=== PATIENT | male | born 1980 | race Caucasian/White ===

== ENCOUNTER 2020-04-14 23:04 | Inpatient (IN) ==
[2020-04-15] MEDS ORDERED: ONDANSETRON INJ 2 MG/ML 2 ML VIAL IV STA (00:03)
[2020-04-15] MEDS ORDERED: DEXAMETHASONE SOD INJ 10 MG/ML VIAL IV ONE (00:03)
[2020-04-15] MEDS ORDERED: ACETAMINOPHEN 500 MG TAB PO STA (00:03)
[2020-04-15] MEDS ORDERED: SODIUM CHLORIDE 0.9% 1000ML 1,000 ML IV SCH (00:15)
[2020-04-15 01:15] LABS: Basophils # (auto) 0.01 K/uL (0-0.2); Basophils % (auto) 0.2 %; Eosinophils # (auto) 0.01 K/uL (0-0.5); Eosinophils % (auto) 0.2 %; Hematocrit (blood only) 48.7 % (42-52); Hemoglobin 16.8 g/dL (14.0-18.0); Immature Granulocytes # (auto) 0.01 K/uL (0.00-0.02); Immature Granulocytes % (auto) 0.2 %; Lymphocytes # (auto) 0.82 K/uL (1.2-3.4); Lymphocytes % (auto) 18.9 %; Mean Corpuscular Hemoglobin 32.2 pg (25-34); Mean Corpuscular Hgb Conc 34.5 g/dL (32-36); Mean Corpuscular Volume 93.5 fL (80-100); Mean Platelet Volume 10.5 fL (7.4-10.4); Monocytes # (auto) 0.37 K/uL (0.11-0.59); Monocytes % (auto) 8.5 %; Neutrophils # (auto) 3.11 K/uL (1.4-6.5); Platelet Count 190 K/uL (130-400); RDW Coefficient of Variation 13.4 % (11.5-14.5); Red Blood Count 5.21 M/uL (4.7-6.1); White Blood Count 4.33 K/uL (4.8-10.8)
[2020-04-15 01:32] LABS: Albumin Level 3.5 gm/dl (3.4-5.0); Blood Urea Nitrogen 13 mg/dl (7-18); Calcium 8.7 mg/dl (8.5-10.1); Carbon Dioxide 27 mmol/L (21-32); Chloride 100 mmol/L (98-107); Creatinine Clr Calc Pharmacy 95.2 ml/min; Est GFR (Non-African American) 64.8; Glucose 110 mg/dl (70-99); Potassium 4.1 mmol/L (3.5-5.1); Sodium 133 mmol/L (136-145)
[2020-04-15 01:48] LABS: Alanine Aminotransferase 149 U/L (12-78); Albumin Globulin Ratio 0.7 (0.9-2); Alkaline Phosphatase 97 U/L (45-117); Aspartate Aminotransferase 145 U/L (15-37); Bilirubin,Total 0.7 mg/dl (0.2-1); Globulin 4.7 gm/dl (2.5-4.0); Total Protein 8.2 gm/dl (6.4-8.2); Troponin I < 0.015 ng/ml (0-0.045)
[2020-04-15] MEDS ORDERED: LEVALBUTEROL TARTRATE 15 GM HFA.AER.AD INH PRN (01:59)
[2020-04-15 02:41] LABS: Magnesium 2.2 mg/dl (1.8-2.4)
--- NOTE | 2020-04-15 03:05 | Emergency Department Note ---
History of Present Illness General Chief complaint: Shortness of Breath/Dyspnea Stated complaint: SOB, Time Seen by Provider: 04/14/20 23:50 Source: patient and RN notes reviewed Mode of arrival: ambulatory Limitations: no limitations History of Present Illness Provider complaint: Covid exposure, shortness of breath, cough, low pulse ox Maximum Pain Intensity: 0 This patient is a 39-year-old male who presents emergency department with complaints of shortness of breath, cough. His recently tested positive for Covid. He had outpatient swab done earlier today but over the course of the evening developed fevers, cough, shortness of breath and used his 's pulse oximeter and realize his oxygen saturations were in the mid 80s. Patient states he has had symptoms for 3 to 4 days. He has lost sense of taste and smell. He has had difficulty eating and drinking but denies any vomiting or diarrhea. He has been using occasional Tylenol for pain and fever but has not had any in over 12 hours. He denies any significant chest pain or abdominal pain at this time. 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 and A total of 10 systems reviewed and were otherwise negative Physical Exam Vital Signs Vital Signs - 24 hr 04/14/20 23:07 04/14/20 23:41 04/14/20 23:43 Temperature 37.8 C H Temperature Source Temporal Artery Scan Pulse Rate 130 H 110 H Pulse Rate [Apical] Pulse Rate from SpO2 Sensor 110 H Respiratory Rate 20 20 Respiratory Effort / Characteristics Respiratory Depth Normal Blood Pressure 111/68 Blood Pressure [Right Arm] Blood Pressure Mean 82 Blood Pressure Mean [Right Arm] Pulse Oximetry 90 87 L 95 Oxygen Delivery Method Room Air Nasal Cannula Room Air Oxygen Flow Rate 2 Sepsis Recent Fever Within 48 Hours No Sepsis New/Unexplained Change in Mental Status N/A Sepsis Action Taken by Nursing No Action Required Oxygen Flow Rate - Titration 2 Pulse Oximetry Post Tiitration 91 04/15/20 00:00 04/15/20 00:30 04/15/20 01:18 Temperature Temperature Source Pulse Rate 109 H 115 H 109 H Pulse Rate [Apical] Pulse Rate from SpO2 Sensor 109 H 115 H 110 H Respiratory Rate 24 15 15 Respiratory Effort / Characteristics Respiratory Depth Blood Pressure 113/69 Blood Pressure [Right Arm] Blood Pressure Mean 87 Blood Pressure Mean [Right Arm] Pulse Oximetry 96 95 96 Oxygen Delivery Method Nasal Cannula Nasal Cannula Nasal Cannula Oxygen Flow Rate 2 2 2 Sepsis Recent Fever Within 48 Hours Sepsis New/Unexplained Change in Mental Status Sepsis Action Taken by Nursing Oxygen Flow Rate - Titration Pulse Oximetry Post Tiitration 04/15/20 01:30 04/15/20 01:31 04/15/20 02:00 Temperature Temperature Source Pulse Rate 106 H 105 H 110 H Pulse Rate [Apical] Pulse Rate from SpO2 Sensor 106 H 105 H 110 H Respiratory Rate 24 24 22 Respiratory Effort / Characteristics Respiratory Depth Blood Pressure 121/75 102/66 Blood Pressure [Right Arm] Blood Pressure Mean 81 80 Blood Pressure Mean [Right Arm] Pulse Oximetry 97 97 95 Oxygen Delivery Method Nasal Cannula Nasal Cannula Nasal Cannula Oxygen Flow Rate 2 2 2 Sepsis Recent Fever Within 48 Hours Sepsis New/Unexplained Change in Mental Status Sepsis Action Taken by Nursing Oxygen Flow Rate - Titration Pulse Oximetry Post Tiitration 04/15/20 02:01 04/15/20 02:48 Temperature 37.4 C Temperature Source Oral Pulse Rate 111 H Pulse Rate [Apical] 99 H Pulse Rate from SpO2 Sensor 111 H Respiratory Rate 17 23 Respiratory Effort / Characteristics Non-Labored Spontaneous Respiratory Depth Normal Blood Pressure Blood Pressure [Right Arm] 104/64 Blood Pressure Mean Blood Pressure Mean [Right Arm] 77 Pulse Oximetry 94 92 Oxygen Delivery Method Nasal Cannula Nasal Cannula Oxygen Flow Rate 2 2 Sepsis Recent Fever Within 48 Hours Sepsis New/Unexplained Change in Mental Status Sepsis Action Taken by Nursing Oxygen Flow Rate - Titration Pulse Oximetry Post Tiitration Vital signs reviewed. General: Well-appearing 39 yo male, in no significant distress. HEENT: No scleral icterus, PERRLA, neck supple. Atraumatic. Cardiovascular: Regular rate and rhythm, no extra sounds. Pulmonary: Coarse breath sounds bilaterally, normal work of breathing. On nasal cannula oxygen Abdomen: Soft, obese, nontender, nondistended, positive bowel sounds. Musculoskeletal: Atraumatic, no peripheral edema. Neurologic: Patient awake alert and oriented x 3. Skin: Warm, dry, no rash Course Administered Medications Benzonatate (Benzonatate 100 Mg Capsule) 100 mg PO BID PRN PRN Reason: Cough Stop: 05/15/20 16:03 Last Admin: 04/16/20 00:53 Dose: 100 mg Documented by: [id number] Enoxaparin Sodium (Enoxaparin Inj 40 Mg/0.4 Ml Syr) 40 mg SQ QAM [facility] Stop: 05/15/20 08:59 Last Admin: 04/18/20 08:48 Dose: 40 mg Documented by: [id number] Admin: 04/17/20 08:24 Dose: 40 mg Documented by: [id number] Admin: 04/16/20 08:43 Dose: 40 mg Documented by: [id number] Admin: 04/15/20 08:11 Dose: 40 mg Documented by: [id number] Guaifenesin (Guaifenesin 600 Mg Tabcr) 1,200 mg PO Q12 [facility] Stop: 05/15/20 06:52 Last Admin: 04/18/20 08:49 Dose: 1,200 mg Documented by: [id number] Admin: 04/17/20 21:31 Dose: 1,200 mg Documented by: [id number] Admin: 04/17/20 08:24 Dose: 1,200 mg Documented by: [id number] Admin: 04/16/20 21:22 Dose: 1,200 mg Documented by: [id number] Admin: 04/16/20 08:42 Dose: 1,200 mg Documented by: [id number] Admin: 04/15/20 22:03 Dose: Not Given Documented by: [id number] Admin: 04/15/20 08:11 Dose: 1,200 mg Documented by: [id number] Guaifenesin/Codeine Phosphate (Guaifenesin/Codeine 200mg/20mg 10ml Udc) 10 ml PO Q6H PRN PRN Reason: Cough Stop: 05/15/20 15:54 Last Admin: 04/16/20 00:53 Dose: 10 ml Documented by: [id number] Dexamethasone Sodium Phosphate (6 mg/ Syringe) 1.5 mls @ 1 mls/min IV QAM [facility] Stop: 04/25/20 09:02 Last Admin: 04/18/20 08:48 Dose: 1 mls/min Documented by: [id number] Admin: 04/17/20 08:25 Dose: 1 mls/min Documented by: [id number] Admin: 04/16/20 08:42 Dose: 1 mls/min Documented by: [id number] Remdesivir 100 mg/ Sodium (Chloride) 250 mls @ 250 mls/hr IV Q24H [facility]ELANIA; Protocol Stop: 04/19/20 20:59 Last Infusion: 04/17/20 21:29 Dose: 0 mls/hr Documented by: [id number] Admin: 04/17/20 20:19 Dose: 250 mls/hr Documented by: [id number] Infusion: 04/16/20 23:44 Dose: 0 mls/hr Documented by: [id number] Admin: 04/16/20 21:21 Dose: 250 mls/hr Documented by: [id number] Ipratropium [place] (Ipratropium [place] Neb Soln 0.02% 2.5 Ml Vial) 0.5 mg INH Q4H PRN PRN Reason: Shortness Of Breath Or Wheezing Stop: 05/17/20 00:14 Last Admin: 04/17/20 00:36 Dose: 0.5 mg Documented by: [id number] Levalbuterol HCl (Levalbuterol 1.25mg/0.5ml Neb) 1.25 mg INH Q4H PRN PRN Reason: Shortness Of Breath Or Wheezing Stop: 05/17/20 00:14 Last Admin: 04/17/20 00:36 Dose: 1.25 mg Documented by: [id number] Sodium Chloride (Sodium Chloride 0.9% 10ml Flush) 30 ml IV Q24H [facility]EL[facility]IA Stop: 04/19/20 20:01 Last Admin: 04/17/20 21:29 Dose: 30 ml Documented by: [id number] Admin: 04/16/20 23:43 Dose: 30 ml Documented by: [id number] Admin: 04/15/20 20:30 Dose: 30 ml Documented by: [id number] Discontinued Medications Acetaminophen (Acetaminophen 500 Mg Tab) 1,000 mg PO ONE STA Stop: 04/15/20 00:04 Last Admin: 04/15/20 01:09 Dose: 1,000 mg Documented by: [id number] Dexamethasone (Dexamethasone Sod Inj 10 Mg/Ml Vial) 6 mg IV NOW ONE Stop: 04/15/20 00:04 Last Admin: 04/15/20 01:11 Dose: 6 mg Documented by: [id number] Guaifenesin/Codeine Phosphate (Guaifenesin/Codeine 200mg/20mg 10ml Udc) 10 ml PO ONE ONE Stop: 04/15/20 15:57 Last Admin: 04/15/20 16:42 Dose: 10 ml Documented by: [id number] Sodium Chloride (Nss 1000ml) 1,000 mls @ 999 mls/hr IV .Q1H1M [facility]EL[facility]IA Stop: 04/15/20 01:15 Last Infusion: 04/15/20 02:48 Dose: 0 mls/hr Documented by: [id number] Admin: 04/15/20 01:09 Dose: 999 mls/hr Documented by: [id number] Sodium Chloride (Nss 1000ml) 1,000 mls @ 200 mls/hr IV .Q5H ONE Stop: 04/15/20 09:12 Last Infusion: 04/15/20 08:28 Dose: 0 mls/hr Documented by: [id number] Admin: 04/15/20 05:12 Dose: 200 mls/hr Documented by: [id number] Remdesivir 200 mg/ Sodium (Chloride) 250 mls @ 125 mls/hr IV 1630 ONE; Protocol Stop: 04/15/20 18:29 Last Infusion: 04/15/20 19:14 Dose: 0 mls/hr Documented by: [id number] Admin: 04/15/20 16:50 Dose: 125 mls/hr Documented by: [id number] Furosemide 40 mg/ Syringe 4 mls @ 4 mls/min IV ONE ONE Stop: 04/18/20 11:16 Last Admin: 04/18/20 11:25 Dose: 4 mls/min Documented by: [id number] Levalbuterol HCl (Levalbuterol Tartrate 15 Gm Hfa.Aer.Ad) 2 puffs INH Q6 MELANIA Stop: 05/15/20 06:52 Last Admin: 04/15/20 14:23 Dose: 2 puffs Documented by: [id number] Admin: 04/15/20 07:54 Dose: 2 puffs Documented by: [id number] Ondansetron HCl (Ondansetron Inj 2 Mg/Ml 2 Ml Vial) 4 mg IV NOW STA Stop: 04/15/20 00:04 Last Admin: 04/15/20 01:09 Dose: 4 mg Documented by: [id number] Critical Care Time Critical Care Time: Yes Total Critical Care Time: 35 The high probability of a clinically significant, sudden or life threatening deterioration required my full and direct attention, intervention and personal management. The aggregate critical care time was 35 minutes. This time is in addition to time spent performing reported procedures but includes the following: [x] Data Review and interpretation [x] Patient assessment and monitoring of vital signs [x] Documentation [x] Medication orders and management Medical Decision Making Differential Diagnosis Reactive airway disease, Covid, pneumonia, pneumothorax, COPD, CHF, infections, cardiac ischemia, pulmonary embolism, musculoskeletal, gastrointestinal, as well as other pathologies. Medical Records Attestation: I reviewed the patient's medical records. Home Medications Current Medication List: was personally reviewed by me Laboratory Data Attestation: I reviewed the patient's lab results. Result diagrams: 04/17/20 06:10 04/18/20 07:20 Lab Results 04/15/20 04/15/20 04/15/20 Range/Units 00:03 01:04 01:04 WBC 4.33 L (4.8-10.8) K/uL RBC 5.21 (4.7-6.1) M/uL Hgb 16.8 (14.0-18.0) g/dL Hct 48.7 (42-52) % MCV 93.5 (80-100) fL MCH 32.2 (25-34) pg MCHC 34.5 (32-36) g/dL RDW Std Deviation 46.0 (36.4-46.3) fL RDW Coeff of Mac 13.4 (11.5-14.5) % Plt Count 190 (130-400) K/uL MPV 10.5 H (7.4-10.4) fL Immature Gran % (Auto) 0.2 % Neut % (Auto) 72.0 % Lymph % (Auto) 18.9 % Burt % (Auto) 8.5 % Eos % (Auto) 0.2 % Baso % (Auto) 0.2 % Neut # (Auto) 3.11 (1.4-6.5) K/uL Lymph # (Auto) 0.82 L (1.2-3.4) K/uL Burt # (Auto) 0.37 (0.11-0.59) K/uL Eos # (Auto) 0.01 (0-0.5) K/uL Baso # (Auto) 0.01 (0-0.2) K/uL Immature Gran # (Auto) 0.01 (0.00-0.02) K/uL Sodium 133 L (136-145) mmol/L Potassium 4.1 (3.5-5.1) mmol/L Chloride 100 (98-107) mmol/L Carbon Dioxide 27 (21-32) mmol/L Anion Gap 6.0 (3-11) BUN 13 (7-18) mg/dl Creatinine 1.35 (0.6-1.4) mg/dl Est Cr Clr Drug Dosing 95.2 ml/min Est GFR ( Amer) 75.0 Est GFR (Non-Af Amer) 64.8 BUN/Creatinine Ratio 10.0 (10-20) Glucose 110 H (70-99) mg/dl Estimat Average Glucose mg/dl Hemoglobin A1c (4.5-5.6) % Lactate (0.4-2.0) mmol/L Calcium 8.7 (8.5-10.1) mg/dl Magnesium 2.2 (1.8-2.4) mg/dl Total Bilirubin 0.7 (0.2-1) mg/dl AST 145 H (15-37) U/L ALT 149 H (12-78) U/L Alkaline Phosphatase 97 (45-117) U/L Troponin I < 0.015 (0-0.045) ng/ml Total Protein 8.2 (6.4-8.2) gm/dl Albumin 3.5 (3.4-5.0) gm/dl Globulin 4.7 H (2.5-4.0) gm/dl Albumin/Globulin Ratio 0.7 L (0.9-2) Procalcitonin 0.15 (0-0.5) ng/ml TSH 1.650 (0.300-4.500) uIu/ml COVID-19 Eval Order SARS-CoV-2, RNA, NAAT (NEGATIVE) 04/15/20 04/15/20 04/15/20 Range/Units 01:04 01:04 01:16 WBC (4.8-10.8) K/uL RBC (4.7-6.1) M/uL Hgb (14.0-18.0) g/dL Hct (42-52) % MCV (80-100) fL MCH (25-34) pg MCHC (32-36) g/dL RDW Std Deviation (36.4-46.3) fL RDW Coeff of Mac (11.5-14.5) % Plt Count (130-400) K/uL MPV (7.4-10.4) fL Immature Gran % (Auto) % Neut % (Auto) % Lymph % (Auto) % Burt % (Auto) % Eos % (Auto) % Baso % (Auto) % Neut # (Auto) (1.4-6.5) K/uL Lymph # (Auto) (1.2-3.4) K/uL Burt # (Auto) (0.11-0.59) K/uL Eos # (Auto) (0-0.5) K/uL Baso # (Auto) (0-0.2) K/uL Immature Gran # (Auto) (0.00-0.02) K/uL Sodium (136-145) mmol/L Potassium (3.5-5.1) mmol/L Chloride (98-107) mmol/L Carbon Dioxide (21-32) mmol/L Anion Gap (3-11) BUN (7-18) mg/dl Creatinine (0.6-1.4) mg/dl Est Cr Clr Drug Dosing ml/min Est GFR ( Amer) Est GFR (Non-Af Amer) BUN/Creatinine Ratio (10-20) Glucose (70-99) mg/dl Estimat Average Glucose 128 mg/dl Hemoglobin A1c 6.1 H (4.5-5.6) % Lactate 0.8 (0.4-2.0) mmol/L Calcium (8.5-10.1) mg/dl Magnesium (1.8-2.4) mg/dl Total Bilirubin (0.2-1) mg/dl AST (15-37) U/L ALT (12-78) U/L Alkaline Phosphatase (45-117) U/L Troponin I (0-0.045) ng/ml Total Protein (6.4-8.2) gm/dl Albumin (3.4-5.0) gm/dl Globulin (2.5-4.0) gm/dl Albumin/Globulin Ratio (0.9-2) Procalcitonin (0-0.5) ng/ml TSH (0.300-4.500) uIu/ml COVID-19 [facility] SARS-[facility]-2, RNA, NAAT (NEGATIVE) 04/15/20 Range/Units 01:16 WBC (4.8-10.8) K/uL RBC (4.7-6.1) M/uL Hgb (14.0-18.0) g/dL Hct (42-52) % MCV (80-100) fL MCH (25-34) pg MCHC (32-36) g/dL RDW Std Deviation (36.4-46.3) fL RDW Coeff of Mac (11.5-14.5) % Plt Count (130-400) K/uL MPV (7.4-10.4) fL Immature Gran % (Auto) % Neut % (Auto) % Lymph % (Auto) % Burt % (Auto) % Eos % (Auto) % Baso % (Auto) % Neut # (Auto) (1.4-6.5) K/uL Lymph # (Auto) (1.2-3.4) K/uL Burt # (Auto) (0.11-0.59) K/uL Eos # (Auto) (0-0.5) K/uL Baso # (Auto) (0-0.2) K/uL Immature Gran # (Auto) (0.00-0.02) K/uL Sodium (136-145) mmol/L Potassium (3.5-5.1) mmol/L Chloride (98-107) mmol/L Carbon Dioxide (21-32) mmol/L Anion Gap (3-11) BUN (7-18) mg/dl Creatinine (0.6-1.4) mg/dl Est Cr Clr Drug Dosing ml/min Est GFR ( Amer) Est GFR (Non-Af Amer) BUN/Creatinine Ratio (10-20) Glucose (70-99) mg/dl Estimat Average Glucose mg/dl Hemoglobin A1c (4.5-5.6) % Lactate (0.4-2.0) mmol/L Calcium (8.5-10.1) mg/dl Magnesium (1.8-2.4) mg/dl Total Bilirubin (0.2-1) mg/dl AST (15-37) U/L ALT (12-78) U/L Alkaline Phosphatase (45-117) U/L Troponin I (0-0.045) ng/ml Total Protein (6.4-8.2) gm/dl Albumin (3.4-5.0) gm/dl Globulin (2.5-4.0) gm/dl Albumin/Globulin Ratio (0.9-2) Procalcitonin (0-0.5) ng/ml TSH (0.300-4.500) uIu/ml COVID-19 Eval Order SARS-CoV-2, RNA, NAAT POSITIVE A* (NEGATIVE) Imaging Data Attestation: I personally reviewed and interpreted this imaging study as follows: My Impression: Chest x-ray to my interpretation reveals evidence of a viral pneumonitis, no pneumothorax Radiologist's Impression: XR chest 1V portable HISTORY: Shortness of breath. Positive Covid. COMPARISON: None. FINDINGS: No pneumothorax. No pleural effusions. The heart is mildly enlarged. There is patchy hazy bilateral airspace opacities within the mid to lower lung zones most pronounced on the left. This is consistent with a multifocal pneumonia. IMPRESSION: Patchy bilateral airspace opacities within the mid to lower lung zones consistent with a multifocal pneumonia. ACT 112: Negative or not required by law. Electronically signed by: Klaus Fabian M.D. 04/15/2020 7:51 AM Dictated: 04/15/20749Transcribed: 04/15/20749 ECG Data Attestation: I personally reviewed and interpreted this ECG as follows: Indication: + tachycardia Rate (beats per minute): 114 Rhythm: + sinus tachycardia ECG [place]: + Left axis deviation ECG ST segments: + Normal ST segments and + Nonspecific ST abnormalities ECG Findings: + Q waves; no PACs and no PVCs Blood Pressure Blood Pressure Findings: Normal blood pressure Blood Pressure Disposition: did not require urgent referral MDM Narrative This pt was evaluated and appeared to be in no distress. He was noted to be hypoxic on RA at triage and placed on n/c O2. An order for cardiac monitoring was placed and the pt is noted to be in a ST at 120 bpm. CXR reveals bilateral patchy infiltrates. Pt was given po tylenol, IV decadron, and IX zofran. He was hydrated with NSS. Lab work reveals a mild leukopenia, neg troponin and normal lactate. Pt is mildly hypokalemic, maybe secondary to hyperventilation. Pt's case was d/w the hospitalist service for admission and further management. Pt is aware of the plan and agrees. Impression & Plan Pneumonia due to 2019 novel coronavirus, Hypoxia Discharge Plan Visit Data Chief Complaint: Shortness of Breath/Dyspnea Stated Complaint: SOB, ED Provider: Laurie Shelton Discharge Problem: Pneumonia due to 2019 novel coronavirus, Hypoxia Patient Disposition: Admitted As Inpatient Discharge Instructions Interventions: ED Discharge Assessment Last Done: 04/15/20 06:21
[2020-04-15] MEDS ORDERED: SODIUM CHLORIDE 0.9% 1000ML 1,000 ML IV ONE (04:13)
--- NOTE | 2020-04-15 05:07 | History & Physical Report ---
Date of Service April 15, 2020 Assessment & Plan (1) Acute hypoxemic respiratory failure: Secondary to severe COVID-19 pneumonia Transaminitis, possible fatty liver disease Hyperglycemia rule out DM Medical telemetry Supplemental O2 Baseline ABG Decadron course for severe COVID-19 pneumonia MDI RTC Hold Remdesivir for now given abnormal LFTs. Check hemoglobin A1c DVT prophylaxis per Lovenox subcu Full code Text document was generated using [employer] voice recognition software. It may contain grammatical or spelling errors. Kindly contact undersigned for clarification of any documentation item in question. History of Present Illness Chief Complaint: Cough, shortness of breath Primary Care Provider: NO PCP History obtained from patient and records. No significant medical history. Yesterday, patient developed dry cough and shortness of breath symptoms with fever, chills. No chest pain. Appetite not too good. 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 At the ER, O2 sats 80s at some point. Decadron given at the ER. 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 Allergies Allergy/AdvReac Type Severity Reaction Status Date / Time No Known Allergies Allergy Unverified 04/15/20 00:01 Home Medications Medication Instructions Recorded Confirmed Type No Known Home Medications 04/15/20 04/15/20 History Past Med/Surg History Medical History (Updated 04/15/20 @ 13:41 by José Miguel Tong MD) Kidney stones Social History Smoking Status: Never smoker Second Hand Exposure: No; Do You Dip or Chew Tobacco: No; Tobacco Cessation Education Requested by Patient: No Hx Alcohol Use: Yes Hx Substance Use: No Preferred Language: Frisian Communication Ability: Effective 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 Beliefs That Will Affect Care: None marital status: Current Living Situation: Spouse Other Information That Helps Us Care for You: No Feels Safe at Home: Yes Safety Concerns: Feels Safe At This Time Assistive Devices: None Review of Systems Review of Systems: As per HPI, all 10 systems reviewed, all other ROS negative Physical Exam Physical Exam: GENERAL: Comfortable, obese, pleasant, no respiratory distress SKIN: Normal color, warm HEENT: Boring palpebral conjunctivae, no ptosis, dry buccal mucosa, nasal cannula in place NECK : Supple, short neck, no tenderness CHEST : CTA, no tenderness HEART : RRR, no obvious murmurs ABDOMEN: Some distention, nontender EXTREMITIES : No LE swelling/tenderness, no other conspicuous deformities noted NEUROLOGIC : Coherent, no facial asymmetry, no other gross focality Results & Data Results & Data ([facility]) Vital Signs (Past 12 Hours) Vital Signs Temp Pulse Pulse Resp BP BP Pulse Ox 04/15/20 04:01 88 22 92 04/15/20 04:00 88 20 103/61 92 04/15/20 03:31 91 H 19 93 04/15/20 03:30 90 24 94/62 L 92 04/15/20 03:01 96 H 24 94 04/15/20 03:00 94 H 24 107/62 94 04/15/20 02:48 37.4 C 99 H 99 H 22 104/64 104/64 92 04/15/20 02:01 111 H 17 94 04/15/20 02:00 110 H 22 102/66 95 04/15/20 01:31 105 H 24 97 04/15/20 01:30 106 H 24 121/75 97 04/15/20 01:18 109 H 15 113/69 96 04/15/20 00:30 115 H 15 95 04/15/20 00:00 109 H 24 96 04/14/20 23:43 110 H 20 95 04/14/20 23:41 87 L 04/14/20 23:07 37.8 C H 130 H 20 111/68 90 Laboratory Results Laboratory Results WBC 4.33 K/uL (4.8-10.8) L 04/15/20 01:04 RBC 5.21 M/uL (4.7-6.1) 04/15/20 01:04 Hgb 16.8 g/dL (14.0-18.0) 04/15/20 01:04 Hct 48.7 % (42-52) 04/15/20 01:04 MCV 93.5 fL (80-100) 04/15/20 01:04 MCH 32.2 pg (25-34) 04/15/20 01:04 MCHC 34.5 g/dL (32-36) 04/15/20 01:04 RDW Std Deviation 46.0 fL (36.4-46.3) 04/15/20 01:04 RDW Coeff of Mac 13.4 % (11.5-14.5) 04/15/20 01:04 Plt Count 190 K/uL (130-400) 04/15/20 01:04 MPV 10.5 fL (7.4-10.4) H 04/15/20 01:04 Immature Gran % (Auto) 0.2 % 04/15/20 01:04 Neut % (Auto) 72.0 % 04/15/20 01:04 Lymph % (Auto) 18.9 % 04/15/20 01:04 [place] % (Auto) 8.5 % 04/15/20 01:04 Eos % (Auto) 0.2 % 04/15/20 01:04 Baso % (Auto) 0.2 % 04/15/20 01:04 Neut # (Auto) 3.11 K/uL (1.4-6.5) 04/15/20 01:04 Lymph # (Auto) 0.82 K/uL (1.2-3.4) L 04/15/20 01:04 [place] # (Auto) 0.37 K/uL (0.11-0.59) 04/15/20 01:04 Eos # (Auto) 0.01 K/uL (0-0.5) 04/15/20 01:04 Baso # (Auto) 0.01 K/uL (0-0.2) 04/15/20 01:04 Immature Gran # (Auto) 0.01 K/uL (0.00-0.02) 04/15/20 01:04 Sodium 133 mmol/L (136-145) L 04/15/20 01:04 Potassium 4.1 mmol/L (3.5-5.1) 04/15/20 01:04 Chloride 100 mmol/L (98-107) 04/15/20 01:04 Carbon Dioxide 27 mmol/L (21-32) 04/15/20 01:04 Anion Gap 6.0 (3-11) 04/15/20 01:04 BUN 13 mg/dl (7-18) 04/15/20 01:04 Creatinine 1.35 mg/dl (0.6-1.4) 04/15/20 01:04 Est Cr Clr Drug Dosing 95.2 ml/min 04/15/20 01:04 Est GFR ( Amer) 75.0 04/15/20 01:04 Est GFR (Non-Af Amer) 64.8 04/15/20 01:04 BUN/Creatinine Ratio 10.0 (10-20) 04/15/20 01:04 Glucose 110 mg/dl (70-99) H 04/15/20 01:04 Lactate 0.8 mmol/L (0.4-2.0) 04/15/20 01:04 Calcium 8.7 mg/dl (8.5-10.1) 04/15/20 01:04 Magnesium 2.2 mg/dl (1.8-2.4) 04/15/20 01:04 Total Bilirubin 0.7 mg/dl (0.2-1) 04/15/20 01:04 AST 145 U/L (15-37) H 04/15/20 01:04 ALT 149 U/L (12-78) H 04/15/20 01:04 Alkaline Phosphatase 97 U/L (45-117) 04/15/20 01:04 Troponin I < 0.015 ng/ml (0-0.045) 04/15/20 01:04 Total Protein 8.2 gm/dl (6.4-8.2) 04/15/20 01:04 Albumin 3.5 gm/dl (3.4-5.0) 04/15/20 01:04 Globulin 4.7 gm/dl (2.5-4.0) H 04/15/20 01:04 Albumin/Globulin Ratio 0.7 (0.9-2) L 04/15/20 01:04 TSH 1.650 uIu/ml (0.300-4.500) 04/15/20 01:04 COVID-19 Eval Order Covid19 [facility] 04/15/20 01:16 SARS-CoV-2, RNA, NAAT POSITIVE (NEGATIVE) A* 04/15/20 01:16 Diagnostic Findings Chest x-ray : Patchy bilateral airspace opacities within the mid to lower lung zones consistent with a multifocal pneumonia. EKG as per my interpretation : 115, sinus tachycardia, LAD, LAFB, T wave abnormalities inferior leads
[2020-04-15 06:06] LABS: Estimated Average Glucose 128 mg/dl; Hemoglobin A1C 6.1 % (4.5-5.6)
[2020-04-15] MEDS ORDERED: PROMETHAZINE HCL 12.5 MG in SODIUM CHLORIDE 0.9% 50 ML IV PRN (06:53)
[2020-04-15] MEDS ORDERED: ACETAMINOPHEN 325 MG TAB PO PRN (06:53)
[2020-04-15 06:58] LABS: Allen Test Pos (Pos); Base Excess ABG -1.9 mEq/L (-9-1.8); HCO3 ABG 23 mmol/L (19-24); PCO2 ABG 41 mmHg (35-46); PO2 ABG 74 mmHg (80-95); pH ABG 7.37 (7.35-7.45)
[2020-04-15 06:59] LABS: Hematocrit (blood only) 44.9 % (42-52); Hemoglobin 15.3 g/dL (14.0-18.0); Immature Granulocytes # (auto) 0.02 K/uL (0.00-0.02); Immature Granulocytes % (auto) 0.7 %; Lymphocytes # (auto) 0.65 K/uL (1.2-3.4); Mean Corpuscular Hemoglobin 31.8 pg (25-34); Mean Corpuscular Hgb Conc 34.1 g/dL (32-36); Mean Corpuscular Volume 93.3 fL (80-100); Mean Platelet Volume 10.4 fL (7.4-10.4); Monocytes # (auto) 0.14 K/uL (0.11-0.59); Monocytes % (auto) 4.7 %; Neutrophils # (auto) 2.15 K/uL (1.4-6.5); Neutrophils % (auto) 72.6 %; Platelet Count 178 K/uL (130-400); RDW Coefficient of Variation 13.4 % (11.5-14.5); RDW Standard Deviation 45.9 fL (36.4-46.3); Red Blood Count 4.81 M/uL (4.7-6.1); White Blood Count 2.96 K/uL (4.8-10.8)
[2020-04-15 07:28] LABS: Prothrombin Time 10.9 Seconds (9.0-12.0)
[2020-04-15 07:33] LABS: BUN Creatinine Ratio 11.5 (10-20); Bilirubin Direct 0.2 mg/dl (0-0.2); Calcium 7.9 mg/dl (8.5-10.1); Creatinine Clr Calc Pharmacy 120.1 ml/min; Est GFR (African American) 99.4; Est GFR (Non-African American) 85.8; Potassium 4.2 mmol/L (3.5-5.1)
[2020-04-15 07:38] LABS: Bilirubin,Total 0.5 mg/dl (0.2-1); C Reactive Protein 2.92 mg/dl (0-0.29); Ferritin 1943.3 ng/ml (8-388); Total Protein 7.2 gm/dl (6.4-8.2)
--- NOTE | 2020-04-15 07:52 | XRay Report ---
XR chest 1V portable HISTORY: Shortness of breath. Positive Covid. COMPARISON: None. FINDINGS: No pneumothorax. No pleural effusions. The heart is mildly enlarged. There is patchy hazy b ilateral airspace opacities within the mid to lower lung zones most pronounced on the left. This is c onsistent with a multifocal pneumonia. IMPRESSION: Patchy bilateral airspace opacities within the mid to lower lung zones consistent with a multifocal p neumonia. ACT 112: Negative or not required by law. Electronically signed by: Klaus Fabian M.D. 04/15/2020 7:51 AM
[2020-04-15] MEDS: LEVALBUTEROL TARTRATE 15 GM HFA.AER.AD INH SCH ×2 (07:54→14:23)
[2020-04-15] MEDS: ENOXAPARIN INJ 40 MG/0.4 ML SYR SQ SCH (08:11)
[2020-04-15] MEDS: guaiFENesin 600 MG TABCR PO SCH ×2 (08:11→22:03)
[2020-04-15] MEDS ORDERED: dexAMETHasone 6 MG in DEXTROSE 5% 25 ML IV SCH (09:00)
--- NOTE | 2020-04-15 12:31 | Electrocardiogram Report ---
Test Reason : Blood Pressure : / mmHG Vent. Rate : 114 BPM Atrial Rate : 114 BPM P-R Int : 120 ms QRS Dur : 080 ms QT Int : 320 ms P-R-T Axes : 022 -44 020 degrees QTc Int : 441 ms Sinus tachycardia Left axis deviation Poor R wave progression, consider anterior NM vs. lead placement vs. LVH Abnormal ECG No previous ECGs available Confirmed by Gumaro Connolly ([id number]) on 04/15/2020 12:31:20 PM Referred By: REFERRED SELF Confirmed By:Gumaro Connolly
--- NOTE | 2020-04-15 14:21 | Hospitalist Progress Note ---
Date of Service April 15, 2020 Assessment & Plan (1) Pneumonia due to 2019 novel coronavirus: The patient was started on dexamethasone, with remdesivir held secondary to aminotransferases that were elevated. These are not elevated beyond 10 times the upper limit of normal, however, and the patient qualifies for remdesivir treatment. This was initiated. Continue to trend CRP and procalcitonin and follow clinical course closely. No indication for antibiotics at this point. (2) Hypoxia: Continue plan as above, continue oxygen supplementation for support. (3) Elevated LFTs: Likely related to fatty liver disease versus medications. The patient also recently had a couple alcoholic drinks, which may be playing a role. Either way, the LFT elevation is not prohibitive of remdesivir use in the short- term. This was started in the setting of COVID-19 pneumonia with hypoxia. Continue to trend LFTs while the patient is on remdesivir and if they persist, further outpatient work-up for elevated LFTs is warranted. (4) DVT prophylaxis: Lovenox Full code Disposition-to telemetry. Home when off oxygen and clinically improved, likely in the next few days Mojgan Mckeon DO [facility] hospitalist Admission and Anticipated Discharge Date Admission Date: April 15, 2020 Subjective 39-year-old man presenting with worsening shortness of breath, admitted for hypoxia secondary to severe COVID-19 pneumonia Patient is feeling better today Is tolerating p.o. Afebrile Denies nausea or other GI symptoms like diarrhea Some cough is present, and the patient mentions a chronic cough secondary to postnasal drip. Review of Systems Review of Systems: All systems reviewed & are unremarkable except as noted in Subjective Physical Exam Physical Exam: CONSTITUTIONAL: WNWD, vitals as above, generally well- appearing EYES: normal conjunctivae, no scleral icterus ENT: external ear and nose normal, oropharynx clear, MMM RESPIRATORY: coarse rhonchi heard at left base, no crackles, rales or wheezes, normal respiratory effort CARDIOVASCULAR: regular rate and rhythm, S1 and 2 heard without murmurs, gallops or rubs, no JVD, no peripheral edema GASTROINTESTINAL: soft, nontender, nondistended, no guarding MUSCULOSKELETAL: strength 5/5 throughout, head is normocephalic and atraumatic SKIN: warm and dry NEUROLOGIC: No facial palsy, no dysarthria. CN 2-12 grossly intact, normal cognition, normal speech, no gross focal deficits. PSYCHIATRIC: alert cooperative and oriented to person, place and time. Results & Data Results & Data ([facility]) Vital Signs (Past 12 Hours) Vital Signs Temp Pulse Pulse Resp BP BP Pulse Ox 04/15/20 11:08 91 H 04/15/20 11:03 36.5 C 92 H 20 109/68 92 04/15/20 07:57 86 16 93 04/15/20 07:17 36.7 C 83 21 128/79 94 04/15/20 06:24 87 18 118/83 93 04/15/20 06:01 86 18 94 04/15/20 06:00 86 16 111/74 93 04/15/20 05:31 85 14 95 04/15/20 05:30 84 16 105/74 96 04/15/20 05:12 85 15 95 04/15/20 05:11 84 20 116/71 94 04/15/20 05:09 83 93 04/15/20 04:31 87 18 92 04/15/20 04:30 87 18 103/62 91 04/15/20 04:01 88 22 92 04/15/20 04:00 88 20 103/61 92 04/15/20 03:31 91 H 19 93 04/15/20 03:30 90 24 94/62 L 92 04/15/20 03:01 96 H 24 94 04/15/20 03:00 94 H 24 107/62 94 04/15/20 02:48 37.4 C 99 H 99 H 22 104/64 104/64 92 Laboratory Results Short CBC 04/15/20 04/15/20 Range/Units 01:04 06:46 WBC 4.33 L 2.96 L (4.8-10.8) K/uL Hgb 16.8 15.3 (14.0-18.0) g/dL Hct 48.7 44.9 (42-52) % Plt Count 190 178 (130-400) K/uL BMP 04/15/20 04/15/20 01:04 06:46 Sodium 133 L 136 Potassium 4.1 4.2 Chloride 100 108 H Carbon Dioxide 27 24 BUN 13 12 Creatinine 1.35 1.07 Glucose 110 H 132 H Calcium 8.7 7.9 L Cardiac Enzymes 04/15/20 04/15/20 Range/Units 01:04 06:46 Total Creatine Kinase 505 H (39-308) U/L Troponin I < 0.015 (0-0.045) ng/ml Liver Function 04/15/20 04/15/20 Range/Units 01:04 06:46 Total Bilirubin 0.7 0.5 (0.2-1) mg/dl Direct Bilirubin 0.2 (0-0.2) mg/dl AST 145 H 125 H (15-37) U/L ALT 149 H 130 H (12-78) U/L Alkaline Phosphatase 97 84 (45-117) U/L Albumin 3.5 3.0 L (3.4-5.0) gm/dl Medications Administered Current Inpatient Medications Acetaminophen (Acetaminophen 325 Mg Tab) 325 mg PO Q6H PRN PRN Reason: Mild Pain Stop: 05/15/20 06:52 Enoxaparin Sodium (Enoxaparin Inj 40 Mg/0.4 Ml Syr) [facility] [place] [place] Stop: 05/15/20 08:59 Last Admin: 04/15/20 08:11 Dose: 40 mg Documented by: Guaifenesin (Guaifenesin 600 Mg Tabcr) 1,200 mg PO Q12 [facility] Stop: 05/15/20 06:52 Last Admin: 04/15/20 08:11 Dose: 1,200 mg Documented by: Promethazine HCl 12.5 mg/ (Sodium Chloride) 50.5 mls @ 202 mls/hr IV Q6H PRN PRN Reason: Nausea And Vomiting Stop: 05/15/20 06:52 Dexamethasone Sodium Phosphate (6 mg/ Syringe) 1.5 mls @ 1 mls/[facility] [place] [place] Stop: 04/25/20 09:02 Levalbuterol HCl (Levalbuterol Tartrate 15 Gm Hfa.Aer.Ad) 2 puffs INH Q6 [facility] Stop: 05/15/20 06:52 Last Admin: 04/15/20 07:54 Dose: 2 puffs Documented by:
[2020-04-15 14:56] LABS: Appearance Urine Clear (Clear); Bilirubin Urine Negative (Negative); Blood Urine Negative (Negative); Color Urine Yellow; Glucose Urine UA Negative (Negative); Ketones Urine Negative (Negative); Leukocyte Esterase Urine Negative (Negative); Nitrite Urine Negative (Negative); Protein Urine Negative (Negative); Urobilinogen Urine Negative (Negative)
[2020-04-15] MEDS ORDERED: REMDESIVIR 200 MG in SODIUM CHLORIDE 0.9% 210 ML IV ONE (16:30)
[2020-04-15] MEDS: SODIUM CHLORIDE 0.9% 10ML FLUSH IV SCH (20:30)
[2020-04-16] MEDS: BENZONATATE 100 MG CAPSULE PO PRN (00:53)
[2020-04-16 07:44] LABS: Hematocrit (blood only) 47.8 % (42-52); Hemoglobin 16.1 g/dL (14.0-18.0); Mean Corpuscular Hemoglobin 32.1 pg (25-34); Mean Corpuscular Hgb Conc 33.7 g/dL (32-36); Mean Corpuscular Volume 95.4 fL (80-100); Mean Platelet Volume 10.7 fL (7.4-10.4); Platelet Count 198 K/uL (130-400); RDW Coefficient of Variation 13.7 % (11.5-14.5); RDW Standard Deviation 48.3 fL (36.4-46.3); Red Blood Count 5.01 M/uL (4.7-6.1); White Blood Count 5.86 K/uL (4.8-10.8)
[2020-04-16 07:58] LABS: BUN Creatinine Ratio 11.6 (10-20); Calcium 8.8 mg/dl (8.5-10.1); Est GFR (African American) 87.4; Est GFR (Non-African American) 75.4; Potassium 3.9 mmol/L (3.5-5.1)
[2020-04-16 07:59] LABS: C Reactive Protein 1.82 mg/dl (0-0.29)
[2020-04-16] MEDS: guaiFENesin 600 MG TABCR PO SCH ×2 (08:42→21:22)
[2020-04-16] MEDS: DEXAMETHASONE SOD PHOSPHATE 6 MG in SYRINGE 0 ML IV SCH (08:42)
[2020-04-16] MEDS: ENOXAPARIN INJ 40 MG/0.4 ML SYR SQ SCH (08:43)
--- NOTE | 2020-04-16 15:50 | Hospitalist Progress Note ---
Date of Service April 16, 2020 Assessment & Plan (1) Pneumonia due to 2019 novel coronavirus: The patient was started on dexamethasone And has been getting remdesivir,-we will check LFTs No indication for antibiotics at this point. Clinically a little bit better today (2) Hypoxia: Continue plan as above, continue oxygen supplementation for support. Still requiring nasal cannula oxygen up to 3 L to maintain saturation (3) Elevated LFTs: Likely related to fatty liver disease versus medications. The patient also recently had a couple alcoholic drinks, which may be playing a role. We will get repeat LFTs tomorrow (4) DVT prophylaxis: Lovenox Full code Disposition-to telemetry. Home when off oxygen and clinically improved, likely in the next few days Admission and Anticipated Discharge Date Admission Date: April 15, 2020 Subjective The patient was seen and examined in medical floor He was admitted with COVID-19 pneumonia and has been getting little better since admission Complains to have weakness and tiredness Minimal shortness of breath and cough with ambulation Review of Systems Review of Systems: All systems reviewed and are unremarkable except as noted below Respiratory: + cough and + dyspnea on exertion Neurologic: + generalized weakness Physical Exam Physical Exam: Lying in bed with minimal discomfort due to shortness of breath Constitutional: well developed, well nourished and + obese Eyes: PERRL, conjunctivae normal, anicteric sclerae ENMT: external ear and nose normal, oropharynx normal Neck: trachea midline, no thyromegaly Respiratory: no respiratory distress Auscultation: + diminished lung sounds and + crackles (Minimal crackles at the bases) Cardiovascular: Rate/Rhythm: regular rate and regular rhythm Heart Sounds: no murmur Extremities: no edema Gastrointestinal (Abdomen): Inspection/Auscultation: normal bowel sounds; abdomen not distended Percussion/Palpation: abdomen soft; abdomen nontender Musculoskeletal: No acute arthritis in any joint Neurologic: Alert, awake and oriented x3. Generally weak but no focal neuro deficit Psychiatric: A+Ox3, euthymic affect Lymphatic: no cervical or axillary lymphadenopathy Results & Data Results & Data ([facility]) Vital Signs (Past 12 Hours) Vital Signs Temp Pulse Pulse Resp BP Pulse Ox 04/16/20 15:20 37 C 94 H 20 124/80 92 04/16/20 12:10 37.7 C H 96 H 16 111/69 90 04/16/20 07:33 37.7 C H 106 H 16 115/71 93 Laboratory Results Short CBC 04/16/20 Range/Units 06:30 WBC 5.86 (4.8-10.8) K/uL Hgb 16.1 (14.0-18.0) g/dL Hct 47.8 (42-52) % Plt Count 198 (130-400) K/uL BMP 04/16/20 06:30 Sodium 139 Potassium 3.9 Chloride 104 Carbon Dioxide 28 BUN 14 Creatinine 1.19 Glucose 89 Calcium 8.8 Medications Administered Current Inpatient Medications Acetaminophen (Acetaminophen 325 Mg Tab) 325 mg PO Q6H PRN PRN Reason: Mild Pain Stop: 05/15/20 06:52 Benzonatate (Benzonatate 100 Mg Capsule) 100 mg PO BID PRN PRN Reason: Cough Stop: 05/15/20 16:03 Last Admin: 04/16/20 00:53 Dose: 100 mg Documented by: Enoxaparin Sodium (Enoxaparin Inj 40 Mg/0.4 Ml Syr) [facility] Stop: 05/15/20 08:59 Last Admin: 04/16/20 08:43 Dose: 40 mg Documented by: Guaifenesin (Guaifenesin 600 Mg Tabcr) 1,200 mg PO Q12 [facility] Stop: 05/15/20 06:52 Last Admin: 04/16/20 08:42 Dose: 1,200 mg Documented by: Guaifenesin/Codeine Phosphate (Guaifenesin/Codeine 200mg/20mg 10ml Udc) 10 ml PO Q6H PRN PRN Reason: Cough Stop: 05/15/20 15:54 Last Admin: 04/16/20 00:53 Dose: 10 ml Documented by: Dexamethasone Sodium Phosphate (6 mg/ Syringe) 1.5 mls @ 1 mls/min IV QAM [facility] Stop: 04/25/20 09:02 Last Admin: 04/16/20 08:42 Dose: 1 mls/min Documented by: Remdesivir 100 mg/ Sodium (Chloride) 250 mls @ 250 mls/hr IV Q24H [facility]; Protocol Stop: 04/19/20 20:59 Sodium Chloride (Sodium Chloride 0.9% 10ml Flush) 30 ml IV Q24H [facility] Stop: 04/19/20 20:01 Last Admin: 04/15/20 20:30 Dose: 30 ml Documented by:
[2020-04-16] MEDS: REMDESIVIR 100 MG in SODIUM CHLORIDE 0.9% 230 ML IV SCH (21:21)
[2020-04-16] MEDS: SODIUM CHLORIDE 0.9% 10ML FLUSH IV SCH (23:43)
[2020-04-17] MEDS ORDERED: XOPENEX/ATROVENT 1.25mg/0.5MG NEB COMBO NEB PRN (00:01)
[2020-04-17] MEDS ORDERED: IPRATROPIUM BROMIDE NEB SOLN 0.02% 2.5 ML VIAL INH PRN (00:15)
[2020-04-17] MEDS ORDERED: LEVALBUTEROL 1.25MG/0.5ML NEB INH PRN (00:15)
[2020-04-17 06:40] LABS: Basophils # (auto) 0.01 K/uL (0-0.2); Basophils % (auto) 0.2 %; Hematocrit (blood only) 44.7 % (42-52); Hemoglobin 14.9 g/dL (14.0-18.0); Immature Granulocytes # (auto) 0.01 K/uL (0.00-0.02); Immature Granulocytes % (auto) 0.2 %; Lymphocytes # (auto) 1.04 K/uL (1.2-3.4); Lymphocytes % (auto) 20.6 %; Mean Corpuscular Hemoglobin 31.8 pg (25-34); Mean Corpuscular Hgb Conc 33.3 g/dL (32-36); Mean Corpuscular Volume 95.3 fL (80-100); Mean Platelet Volume 10.1 fL (7.4-10.4); Monocytes # (auto) 0.68 K/uL (0.11-0.59); Monocytes % (auto) 13.5 %; Neutrophils # (auto) 3.31 K/uL (1.4-6.5); Neutrophils % (auto) 65.5 %; Platelet Count 227 K/uL (130-400); RDW Coefficient of Variation 13.7 % (11.5-14.5); RDW Standard Deviation 47.5 fL (36.4-46.3); Red Blood Count 4.69 M/uL (4.7-6.1); White Blood Count 5.05 K/uL (4.8-10.8)
[2020-04-17 07:18] LABS: Albumin Level 2.8 gm/dl (3.4-5.0); BUN Creatinine Ratio 16.3 (10-20); Calcium 8.9 mg/dl (8.5-10.1); Creatinine Clr Calc Pharmacy 120.1 ml/min; Est GFR (African American) 99.4; Est GFR (Non-African American) 85.8; Potassium 4.4 mmol/L (3.5-5.1)
[2020-04-17 07:21] LABS: Albumin Globulin Ratio 0.6 (0.9-2); Bilirubin,Total 0.6 mg/dl (0.2-1); Globulin 4.4 gm/dl (2.5-4.0); Total Protein 7.2 gm/dl (6.4-8.2)
[2020-04-17] MEDS: ENOXAPARIN INJ 40 MG/0.4 ML SYR SQ SCH (08:24)
[2020-04-17] MEDS: guaiFENesin 600 MG TABCR PO SCH ×2 (08:24→21:31)
[2020-04-17] MEDS: DEXAMETHASONE SOD PHOSPHATE 6 MG in SYRINGE 0 ML IV SCH (08:25)
--- NOTE | 2020-04-17 15:44 | Hospitalist Progress Note ---
Date of Service April 17, 2020 Assessment & Plan (1) Pneumonia due to 2019 novel coronavirus: The patient was started on dexamethasone And has been getting remdesivir,-we will check LFTs No indication for antibiotics at this point. Clinically a little bit better today-we will continue current treatment (2) Hypoxia: Continue plan as above, continue oxygen supplementation for support. Still requiring nasal cannula oxygen up to 3 L to maintain saturation Still requiring more than 3 L of nasal cannula oxygen to maintain saturation Advised ambulation within the room and use spirometer (3) Elevated LFTs: Likely related to fatty liver disease versus medications. The patient also recently had a couple alcoholic drinks, which may be playing a role. We will get repeat LFTs tomorrow Are improving (4) DVT prophylaxis: Lovenox Full code Disposition-to telemetry. Home when off oxygen and clinically improved, likely in the next few days Admission and Anticipated Discharge Date Admission Date: April 15, 2020 Subjective The patient was seen and examined in medical floor He was admitted with COVID-19 pneumonia and has been getting little better since admission Complains to have weakness and tiredness Minimal shortness of breath and cough with ambulation 04/17/2020 The patient was seen and examined in medical floor He required more oxygen last night but since this morning his saturation remains stable with up to 4 L of nasal cannula oxygen Denies any other symptoms and feels better Review of Systems Review of Systems: All systems reviewed and are unremarkable except as noted below Respiratory: + cough and + dyspnea on exertion Neurologic: + generalized weakness Physical Exam Physical Exam: Lying in bed with minimal discomfort due to shortness of breath Constitutional: well developed, well nourished and + obese Eyes: PERRL, conjunctivae normal, anicteric sclerae ENMT: external ear and nose normal, oropharynx normal Neck: trachea midline, no thyromegaly Respiratory: no respiratory distress Auscultation: + diminished lung sounds and + crackles (Minimal crackles at the bases) Cardiovascular: Rate/Rhythm: regular rate and regular rhythm Heart Sounds: no murmur Extremities: no edema Gastrointestinal (Abdomen): Inspection/Auscultation: normal bowel sounds; abdomen not distended Percussion/Palpation: abdomen soft; abdomen nontender Musculoskeletal: No acute arthritis in any joint Neurologic: Alert, awake and oriented x3. No focal sensory and motor deficit appreciated Psychiatric: A+Ox3, euthymic affect Lymphatic: no cervical or axillary lymphadenopathy Results & Data Results & Data ([facility]) Vital Signs (Past 12 Hours) Vital Signs Temp Pulse Pulse Resp BP Pulse Ox 04/17/20 15:22 36.4 C L 79 18 139/84 88 L 04/17/20 15:02 76 04/17/20 11:06 36.8 C 87 18 151/98 H 89 L 04/17/20 07:33 36.8 C 83 18 130/81 88 L 04/17/20 07:21 83 04/17/20 04:00 36.7 C 78 20 124/87 93 Laboratory Results Short CBC 04/17/20 Range/Units 06:10 WBC 5.05 (4.8-10.8) K/uL Hgb 14.9 (14.0-18.0) g/dL Hct 44.7 (42-52) % Plt Count 227 (130-400) K/uL BMP 04/17/20 06:10 Sodium 139 Potassium 4.4 Chloride 102 Carbon Dioxide 30 BUN 17 Creatinine 1.07 Glucose 99 Calcium 8.9 Liver Function 04/17/20 Range/Units 06:10 Total Bilirubin 0.6 (0.2-1) mg/dl AST 58 H (15-37) U/L ALT 90 H (12-78) U/L Alkaline Phosphatase 77 (45-117) U/L Albumin 2.8 L (3.4-5.0) gm/dl Medications Administered Current Inpatient Medications Acetaminophen (Acetaminophen 325 Mg Tab) 325 mg PO Q6H PRN PRN Reason: Mild Pain Stop: 05/15/20 06:52 Benzonatate (Benzonatate 100 Mg Capsule) 100 mg PO BID PRN PRN Reason: Cough Stop: 05/15/20 16:03 Last Admin: 04/16/20 00:53 Dose: 100 mg Documented by: Enoxaparin Sodium (Enoxaparin Inj 40 Mg/0.4 Ml Syr) 40 mg SQ QAM [facility] Stop: 05/15/20 08:59 Last Admin: 04/17/20 08:24 Dose: 40 mg Documented by: Suzannefenesin (Guaifenesin 600 Mg Tabcr) 1,200 mg PO Q12 [facility] Stop: 05/15/20 06:52 Last Admin: 04/17/20 08:24 Dose: 1,200 mg Documented by: Guaifenesin/Codeine Phosphate (Guaifenesin/Codeine 200mg/20mg 10ml Udc) 10 ml PO Q6H PRN PRN Reason: Cough Stop: 05/15/20 15:54 Last Admin: 04/16/20 00:53 Dose: 10 ml Documented by: Dexamethasone Sodium Phosphate (6 mg/ Syringe) 1.5 mls @ 1 mls/min IV QAM [facility] Stop: 04/25/20 09:02 Last Admin: 04/17/20 08:25 Dose: 1 mls/min Documented by: Remdesivir 100 mg/ Sodium (Chloride) 250 mls @ 250 mls/hr IV Q24H [facility]; Protocol Stop: 04/19/20 20:59 Last Infusion: 04/16/20 23:44 Dose: Infused Documented by: Ipratropium [place] (Ipratropium [place] Neb Soln 0.02% 2.5 Ml Vial) 0.5 mg INH Q4H PRN PRN Reason: Shortness Of Breath Or Wheezing Stop: 05/17/20 00:14 Last Admin: 04/17/20 00:36 Dose: 0.5 mg Documented by: Levalbuterol HCl (Levalbuterol 1.25mg/0.5ml Neb) 1.25 mg INH Q4H PRN PRN Reason: Shortness Of Breath Or Wheezing Stop: 05/17/20 00:14 Last Admin: 04/17/20 00:36 Dose: 1.25 mg Documented by: Sodium Chloride (Sodium Chloride 0.9% 10ml Flush) 30 ml IV Q24H [facility] Stop: 04/19/20 20:01 Last Admin: 04/16/20 23:43 Dose: 30 ml Documented by:
[2020-04-17] MEDS: REMDESIVIR 100 MG in SODIUM CHLORIDE 0.9% 230 ML IV SCH (20:19)
[2020-04-17] MEDS: SODIUM CHLORIDE 0.9% 10ML FLUSH IV SCH (21:29)
[2020-04-18 08:09] LABS: Creatinine Clr Calc Pharmacy 136.4 ml/min; Est GFR (African American) 117.8; Est GFR (Non-African American) 101.6
[2020-04-18] MEDS: DEXAMETHASONE SOD PHOSPHATE 6 MG in SYRINGE 0 ML IV SCH (08:48)
[2020-04-18] MEDS: ENOXAPARIN INJ 40 MG/0.4 ML SYR SQ SCH ×2 (08:48→22:41)
[2020-04-18] MEDS: guaiFENesin 600 MG TABCR PO SCH ×2 (08:49→21:12)
--- NOTE | 2020-04-18 09:12 | XRay Report ---
TWO VIEW CHEST CLINICAL HISTORY: Covid pneumonia. FINDINGS: PA and lateral chest radiographs are compared to study dated 04/15/2020. The heart is top nor mal for projection. Multifocal airspace consolidation has modestly increased as compared to 04/15/2020. Small pleural effusions are suspected. There is no pneumothorax. The bony thorax appears intact. IMPRESSION: Multifocal airspace consolidation has modestly increased from 04/15/2020. ACT 112: Negative or not required by law. Electronically signed by: Dennys Ashton M.D. 04/18/2020 9:11 AM
[2020-04-18] MEDS ORDERED: FUROSEMIDE 40 MG in SYRINGE 0 ML IV ONE (11:15)
--- NOTE | 2020-04-18 14:36 | Hospitalist Progress Note ---
Date of Service April 18, 2020 Assessment & Plan (1) Pneumonia due to 2019 novel coronavirus: The patient was started on dexamethasone And has been getting remdesivir,-we will check LFTs No indication for antibiotics at this point. Clinically worse today with worsening of the chest x-ray finding and requiring more than 10 L of nasal cannula oxygen to maintain saturation [employer] consulted as the patient may require ventilatory support (2) Hypoxia: Continue plan as above, continue oxygen supplementation for support. Advised ambulation within the room and use spirometer Requiring high flow oxygen to maintain saturation Try to put him on prone position without much improvement (3) Elevated LFTs: Likely related to fatty liver disease versus medications. The patient also recently had a couple alcoholic drinks, which may be playing a role. We will get repeat LFTs tomorrow Are improving (4) DVT prophylaxis: Lovenox Full code Disposition-to telemetry. Home when off oxygen and clinically improved, likely in the next few days Admission and Anticipated Discharge Date Admission Date: April 15, 2020 Subjective The patient was seen and examined in medical floor He was admitted with COVID-19 pneumonia and has been getting little better since admission Complains to have weakness and tiredness Minimal shortness of breath and cough with ambulation 04/17/2020 The patient was seen and examined in medical floor He required more oxygen last night but since this morning his saturation remains stable with up to 4 L of nasal cannula oxygen Denies any other symptoms and feels better 04/18/2020 Patient was seen and examined in medical telemetry unit He denies any symptoms but has been requiring more than 10 L of oxygen to maintain saturation since this morning Repeat chest x-ray showed worsening of pneumonia Denies any chest pain and/or palpitation, no fever and/or chills, no nausea and or vomiting Review of Systems Review of Systems: All systems reviewed and are unremarkable except as noted below Respiratory: + cough and + dyspnea on exertion Neurologic: + generalized weakness Physical Exam Physical Exam: Lying in bed with minimal discomfort due to shortness of breath Constitutional: well developed, well nourished and + obese Eyes: PERRL, conjunctivae normal, anicteric sclerae ENMT: external ear and nose normal, oropharynx normal Neck: trachea midline, no thyromegaly Respiratory: no respiratory distress Auscultation: + diminished lung sounds (Very diminished lung sounds bilaterally) Cardiovascular: Rate/Rhythm: regular rate and regular rhythm Heart Sounds: no murmur Extremities: no edema Gastrointestinal (Abdomen): Inspection/Auscultation: normal bowel sounds; abdomen not distended Percussion/Palpation: abdomen soft; abdomen nontender Musculoskeletal: No acute arthritis in any joint Neurologic: Alert, awake and oriented x3. No focal sensory and motor neuro deficit Psychiatric: A+Ox3, euthymic affect Lymphatic: no cervical or axillary lymphadenopathy Results & Data Results & Data ([facility]) Vital Signs (Past 12 Hours) Vital Signs Temp Pulse Pulse Resp BP Pulse Ox 04/18/20 14:09 86 90 04/18/20 13:31 91 04/18/20 11:24 36.7 C 93 H 22 120/80 95 04/18/20 08:47 36.7 C 79 22 116/74 92 04/18/20 07:20 99 H 04/18/20 04:00 36.7 C 84 18 120/75 92 Laboratory Results BMP 04/18/20 07:20 Creatinine 0.93 Liver Function 04/18/20 Range/Units 07:20 AST 49 H (15-37) U/L ALT 82 H (12-78) U/L Medications Administered Current Inpatient Medications Acetaminophen (Acetaminophen 325 Mg Tab) 325 mg PO Q6H PRN PRN Reason: Mild Pain Stop: 05/15/20 06:52 Benzonatate (Benzonatate 100 Mg Capsule) 100 mg PO BID PRN PRN Reason: Cough Stop: 05/15/20 16:03 Last Admin: 04/16/20 00:53 Dose: 100 mg Documented by: Enoxaparin Sodium (Enoxaparin Inj 40 Mg/0.4 Ml Syr) 40 mg SQ QAM [facility] Stop: 05/15/20 08:59 Last Admin: 04/18/20 08:48 Dose: 40 mg Documented by: Guaifenesin (Guaifenesin 600 Mg Tabcr) 1,200 mg PO Q12 [facility] Stop: 05/15/20 06:52 Last Admin: 04/18/20 08:49 Dose: 1,200 mg Documented by: Guaifenesin/Codeine Phosphate (Guaifenesin/Codeine 200mg/20mg 10ml Udc) 10 ml PO Q6H PRN PRN Reason: Cough Stop: 05/15/20 15:54 Last Admin: 04/16/20 00:53 Dose: 10 ml Documented by: Dexamethasone Sodium Phosphate (6 mg/ Syringe) 1.5 mls @ 1 mls/min IV QAM [facility] Stop: 04/25/20 09:02 Last Admin: 04/18/20 08:48 Dose: 1 mls/min Documented by: Remdesivir 100 mg/ Sodium (Chloride) 250 mls @ 250 mls/hr IV Q24H [facility]; Protocol Stop: 04/19/20 20:59 Last Infusion: 04/17/20 21:29 Dose: Infused Documented by: Ipratropium [place] (Ipratropium [place] Neb Soln 0.02% 2.5 Ml Vial) 0.5 mg INH Q4H PRN PRN Reason: Shortness Of Breath Or Wheezing Stop: 05/17/20 00:14 Last Admin: 04/17/20 00:36 Dose: 0.5 mg Documented by: Levalbuterol HCl (Levalbuterol 1.25mg/0.5ml Neb) 1.25 mg INH Q4H PRN PRN Reason: Shortness Of Breath Or Wheezing Stop: 05/17/20 00:14 Last Admin: 04/17/20 00:36 Dose: 1.25 mg Documented by: Sodium Chloride (Sodium Chloride 0.9% 10ml Flush) 30 ml IV Q24H [facility] Stop: 04/19/20 20:01 Last Admin: 04/17/20 21:29 Dose: 30 ml Documented by:
[2020-04-18] MEDS: REMDESIVIR 100 MG in SODIUM CHLORIDE 0.9% 230 ML IV SCH (19:41)
--- NOTE | 2020-04-18 20:08 | Communication Note ---
Date of Service: April 18, 2020 Pulmonary Addendum: Case was reviewed and discussed with BRENNAN Swann. Patient is on 10 L saturating 91-92%. Breathing in high teens to low 20's. Patient has fits of cough occasionally. Patient's CXR shows consolidative process which is similar to seen in Covid 19 PNA. NT BNP is negative. Patient's BMI is 34. CRP is not significantly elevated. C/w Dexa and remedesivir. Repeat PCT. If elevated add Abx coverage Keep Patient Euvolemic to negative balance. If patient needs more than 10 L oxygen would recommend HiFlow Given BMI 34, BiPAP can also be used if tolerated. Would recommend 03/18. Pulmonary will continue to follow. Call with questions. Coding Level of Care Code None
[2020-04-18] MEDS: SODIUM CHLORIDE 0.9% 10ML FLUSH IV SCH (21:12)
[2020-04-18] MEDS: guaiFENesin/DEXTROM SYRUP 200MG/20MG 10ML UDC PO SCH (21:12)
--- NOTE | 2020-04-18 21:52 | Critical Care Consultation ---
Date of Consultation April 18, 2020 Assessment & Plan (1) Hypoxia: Patient was seen and assessed at bedside. The patient clinically appears very well at this time. While he is requiring increasing amounts of oxygen, the patient clinically appears very comfortable at this time. He is able to complete full sentences and carry on conversation. He is not tachypneic. Patient reports that he has been using his incentive spirometer. He is currently on Decadron as well as remdesivir. Patient was ordered BiPAP to use at night. In conversation with the patient and nursing staff, the pulmonary service had already been consulted at this time. Orders have been placed by their service. At this point, I do not feel that there is any further intervention necessary from an ICU standpoint. I did have a lengthy discussion with the patient regarding his symptoms and ongoing management this point. I did encourage him to utilize BiPAP as much as possible. Conversation with nurse at bedside. They will continue with the patient's respiratory regime laid out by pulmonary. At this point, ICU service will sign off. Please feel free to reconsult in the event the patient were to have worsening respiratory failure and need for advanced airway techniques. (2) Pneumonia due to 2019 novel coronavirus: History of Present Illness Attending Physician: Corby Noe MD History of Present Illness Patient is a 39-year-old male with no significant past medical history who was admitted to this facility with COVID-19 pneumonia. Patient reports that his was ill with COVID-19 over the last week to 10 days. He states that he has had increasing shortness of breath over the last few days which prompted visit to the emergency department. Patient was noted to have multifocal infiltrates. The patient has received Decadron as well as remdesivir. Despite this, the patient has had increasing oxygen requirements and is now requiring a 10 L oxygen mask. I was approached by hospitalist to evaluate for possible need for increasing airway management techniques. Upon evaluation in room 279, the patient is awake, alert, and oriented. Patient can speak in complete sentences. He is not tachypneic. He is 91 on 10 L OxiMax. Clinically, the patient looks very well. He offers no complaints other than that he does report increasing shortness of breath with coughing fits. He is able to ambulate to and from the restroom, but does admit that this makes him relatively short of breath. Otherwise, the patient denies any complaints of chest pain, palpitations, hemoptysis, nausea, vomiting, dizziness, or lightheadedness. Allergies Allergy/AdvReac Type Severity Reaction Status Date / Time No Known Allergies Allergy Unverified 04/15/20 00:01 Home Medications Medication Instructions Recorded Confirmed Type No Known Home Medications 04/15/20 04/15/20 History Patient History Medical History Kidney stones Social History Smoking Status: Never smoker Second Hand Exposure: No; Do You Dip or Chew Tobacco: No; Tobacco Cessation Education Requested by Patient: No Hx Alcohol Use: Yes Hx Substance Use: No Preferred Language: Portuguese Communication Ability: Effective Margarine Maker Required: No Beliefs That Will Affect Care: None marital status: Current Living Situation: Spouse Other Information That Helps Us Care for You: No Feels Safe at Home: Yes Safety Concerns: Feels Safe At This Time Assistive Devices: Oxygen - Continuous Review of Systems Review of Systems: A complete 10 point review of systems was reviewed with the patient with pertinent positives and negatives as per history of present illness. All else were negative. Physical Exam Physical Exam: VITAL SIGNS - Vital signs and nursing notes were reviewed. GENERAL - 39-year-old male appearing his stated age who is in no acute distress. Communicates well with provider and answers questions appropriately. HEAD - NC/AT. EYES - PERRL with EOMI bilaterally. Sclera anicteric. EARS - No deformities of external structures noted on gross examination bilaterally. NOSE - Midline and without cyanosis. MOUTH/OROPHARYNX - Without perioral cyanosis. Buccal mucosa pink and moist and without leukoplakia. NECK - Neck with FROM. Supple to palpation. LUNGS - Chest wall symmetric without accessory muscle use, intercostals retractions, or central cyanosis. Normal vesicular breath sounds with coarse breath sounds noted throughout. CARDIAC - RRR with S1/S2. No murmur, rubs, or gallops appreciated. No reproducible tenderness to palpation appreciated over the anterior chest wall. ABDOMEN - Abdominal contour obese without pulsations or visible masses. BS normoactive all four quadrants. No tenderness, palpable masses, hepatosplenomegaly, or ascites noted. EXTREMITIES - No clubbing or peripheral cyanosis. No pretibial edema present. +3/5 radial and dorsalis pedis pulses palpated throughout. +5/5 strength noted in UE/LE bilaterally. NEUROLOGIC - Cranial nerves II through XII grossly intact. Sensory intact to light touch throughout. PSYCH - A&Ox3 and cooperates fully with examiner. Pt is very pleasant and interacts well with examiner. Results & Data Results & Data ([facility]) Vital Signs (Past 12 Hours) Vital Signs Temp Pulse Pulse Resp BP Pulse Ox 04/18/20 20:12 36.8 C 80 24 113/72 90 04/18/20 16:00 91 H 04/18/20 14:41 36.6 C 91 H 22 127/76 91 04/18/20 14:09 86 90 04/18/20 13:31 91 04/18/20 11:24 36.7 C 93 H 22 120/80 95 Coding Level of Care Code 81779 Inpt Consult Level 3 Diagnoses Hypoxia R09.02 Pneumonia due to 2019 novel coronavirus U07.1; J12.82 Time Spent (min) 45
[2020-04-18] MEDS: AZITHROMYCIN 500 MG in DEXTROSE 5% 250 ML IV SCH (23:57)
[2020-04-19] MEDS: guaiFENesin/DEXTROM SYRUP 200MG/20MG 10ML UDC PO SCH ×3 (05:53→22:09)
[2020-04-19 05:56] LABS: Basophils # (auto) 0.02 K/uL (0-0.2); Basophils % (auto) 0.4 %; Hematocrit (blood only) 46.2 % (42-52); Hemoglobin 15.5 g/dL (14.0-18.0); Immature Granulocytes # (auto) 0.03 K/uL (0.00-0.02); Immature Granulocytes % (auto) 0.6 %; Lymphocytes # (auto) 1.48 K/uL (1.2-3.4); Lymphocytes % (auto) 27.6 %; Mean Corpuscular Hgb Conc 33.5 g/dL (32-36); Mean Corpuscular Volume 95.5 fL (80-100); Monocytes # (auto) 0.84 K/uL (0.11-0.59); Monocytes % (auto) 15.6 %; Neutrophils % (auto) 55.8 %; Platelet Count 331 K/uL (130-400); RDW Coefficient of Variation 13.4 % (11.5-14.5); RDW Standard Deviation 47.1 fL (36.4-46.3); Red Blood Count 4.84 M/uL (4.7-6.1); White Blood Count 5.37 K/uL (4.8-10.8)
[2020-04-19 06:17] LABS: D Dimer < 190 ug/L FEU (0-500)
[2020-04-19 06:22] LABS: Albumin Level 2.9 gm/dl (3.4-5.0); BUN Creatinine Ratio 20.7 (10-20); C Reactive Protein 2.48 mg/dl (0-0.29); Calcium 8.9 mg/dl (8.5-10.1); Creatinine Clr Calc Pharmacy 112.2 ml/min; Est GFR (African American) 93.1; Est GFR (Non-African American) 80.3; Potassium 3.8 mmol/L (3.5-5.1)
[2020-04-19 06:27] LABS: Albumin Globulin Ratio 0.6 (0.9-2); Bilirubin,Total 0.7 mg/dl (0.2-1); Ferritin 1400.7 ng/ml (8-388); Globulin 4.5 gm/dl (2.5-4.0); Total Protein 7.4 gm/dl (6.4-8.2)
[2020-04-19] MEDS: ENOXAPARIN INJ 40 MG/0.4 ML SYR SQ SCH ×2 (09:02→22:09)
[2020-04-19] MEDS: DEXAMETHASONE SOD PHOSPHATE 6 MG in SYRINGE 0 ML IV SCH (09:02)
[2020-04-19] MEDS: guaiFENesin 600 MG TABCR PO SCH ×2 (09:03→22:09)
--- NOTE | 2020-04-19 10:16 | Pulmonary Consultation ---
Date of Consultation April 19, 2020 Assessment & Plan (1) Acute hypoxemic respiratory failure: Check x-ray 04/18/2020 personally reviewed: Bilateral alveolar opacities appreciated mostly peripheral, increased cardiac silhouette, blunting of bilateral costophrenic and cardiophrenic angles. There is progressive infiltrates compared to chest x-ray done 04/15/2020 --Acute hypoxic respiratory failure Secondary to multilobar pneumonia secondary to COVID-19 COVID-19 PCR positive, 04/15/2020 Procalcitonin less than 0.05 CRP 2.48, AST 848, ALT 83, LDH 297, ferritin 1400 D-dimer less than 190 O2 supplementation to keep oxygen saturation 90-92% Recommend awake proning Continue with remdesivir for total of 5 days Continue with dexamethasone for total of 5 days Atypical coverage for antibiotics for 5 days Lovenox 40 mg twice daily Guaifenesin DM [id number] Incentive spirometry --Morbid obesity History of snoring Recommend outpatient polysomnography BiPAP nightly if patient is able to tolerate --Plan: Patient is not in any respiratory distress at the time of examination although he is needing 11 L of nasal cannula. If we have to go beyond 15 L would recommend high flow. If there is any respiratory distress appreciated subjectively by the patient or objectively by the providers would recommend transition to high flow. Awake proning will be beneficial Recommend keeping the patient euvolemic to negative balance Patient is obese, he will benefit from BiPAP. He tried it last night but he did not tolerated. Would recommend going down on IPAP to 10 and continue with a EPAP to 6 to see if he is able to tolerate. Given the high requirement of oxygen I would recommend the patient to be placed in the Covid unit for better monitoring. Case was discussed with Please note the above document was generated using voice recognition software. It may contain grammatical, syntax or spelling errors.Any formal questions or concerns about the content, text or information contained within the body of this dictation should be directly addressed to the provider for clarification. (2) Pneumonia due to 2019 novel coronavirus: History of Present Illness Attending Physician: Corby Noe MD History of Present Illness 39-year-old male with no significant past medical history was admitted to the hospital because of worsening shortness of breath. Patient was found to be COVID-19 positive Pulmonary were consulted because increasing amount of oxygen At the time of examination patient was at 11 L nasal cannula was saturating 90% with respiratory rate in the high teens to low 20s. He was not in any acute distress. He states that the cough has decreased in amount. He is not getting that many fits of cough he used to. He is on [id number] antitussive for the time being. Denies any chest pain, no fever, no chills. No headache. No dysuria, no diarrhea. Does complain of snoring at night. Social history: Non-smoker, no history of asthma. 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 No exposure any chemicals or fumes. Allergies Allergy/AdvReac Type Severity Reaction Status Date / Time No Known Allergies Allergy Unverified 04/15/20 00:01 Home Medications Medication Instructions Recorded Confirmed Type No Known Home Medications 04/15/20 04/15/20 History Patient History Medical History Kidney stones Social History Smoking Status: Never smoker Second Hand Exposure: No; Do You Dip or Chew Tobacco: No; Tobacco Cessation Education Requested by Patient: No Hx Alcohol Use: Yes Hx Substance Use: No Preferred Language: Citizen Of [place] Communication Ability: Effective Funnel Coater Required: No Beliefs That Will Affect Care: None marital status: Current Living Situation: Spouse Other Information That Helps Us Care for You: No Feels Safe at Home: Yes Safety Concerns: Feels Safe At This Time Assistive Devices: Oxygen - Continuous Review of Systems Review of Systems: All systems reviewed & are unremarkable except as noted in HPI & below Physical Exam Physical Exam: Constitutional: No acute distress HEENT: EOMI, PERRLA Respiratory system: Decreased air entry bilaterally, no wheeze, rhonchi, positive crackles bilateral lower lobes CVS: S1-S2 positive, no murmurs or gallops Abdomen: Soft, nontender, nondistended, positive bowel sounds x4, obese Extremities: +2 pulses bilaterally radialis/ dorsalis pedis, no cyanosis, no edema Neuro: Awake alert oriented x3 Psych: Normal mood and affect G/U: No [place] Skin: no rashes, warm and dry Lymphatic: no cervical or axillary lymphadenopathy Results & Data Results & Data ([facility]) Vital Signs (Past 12 Hours) Vital Signs Temp Pulse Pulse Pulse Resp BP Pulse Ox 04/19/20 08:11 36.6 C 81 18 124/81 91 04/19/20 04:00 68 91 04/18/20 23:54 36.4 C L 69 36 H 119/78 94 04/18/20 22:40 79 37 H 95 04/18/20 22:20 71 04/19/20 05:37 04/19/20 05:37 PG Care Time/CCT Total # of Minutes Spent Total Time Spent with Patient: Total time spent is greater than 50% in coordination of care (as documented) at patient's floor/unit and/or counseling patient: Coding Level of Care Code 74511 Inpt Consult Level 5 Diagnoses Acute hypoxemic respiratory failure J96.01 Pneumonia due to 2019 novel coronavirus U07.1; J12.82
[2020-04-19] MEDS: BENZONATATE 100 MG CAPSULE PO PRN (12:27)
--- NOTE | 2020-04-19 14:16 | Hospitalist Progress Note ---
Date of Service April 19, 2020 Assessment & Plan (1) Pneumonia due to 2019 novel coronavirus: The patient was started on dexamethasone And has been getting remdesivir,-we will check LFTs No indication for antibiotics at this point. Clinically worse today with worsening of the chest x-ray finding and requiring more than 10 L of nasal cannula oxygen to maintain saturation Gauntlet Pairer consulted as the patient may require ventilatory support Appreciate pulmonary input and recommendation Immediate need for intubation He has been put on intravenous azithromycin (2) Hypoxia: Continue plan as above, continue oxygen supplementation for support. Advised ambulation within the room and use spirometer Requiring high flow oxygen to maintain saturation Try to put him on prone position without much improvement Advised to put him on prone position as long as he can tolerate and BiPAP at nighttime (3) Elevated LFTs: Likely related to fatty liver disease versus medications. The patient also recently had a couple alcoholic drinks, which may be playing a role. We will get repeat LFTs tomorrow Are improving (4) DVT prophylaxis: Lovenox Full code Disposition-to telemetry. Home when off oxygen and clinically improved, likely in the next few days Admission and Anticipated Discharge Date Admission Date: April 15, 2020 Subjective The patient was seen and examined in medical floor He was admitted with COVID-19 pneumonia and has been getting little better since admission Complains to have weakness and tiredness Minimal shortness of breath and cough with ambulation 04/17/2020 The patient was seen and examined in medical floor He required more oxygen last night but since this morning his saturation remains stable with up to 4 L of nasal cannula oxygen Denies any other symptoms and feels better 04/18/2020 Patient was seen and examined in medical telemetry unit He denies any symptoms but has been requiring more than 10 L of oxygen to maintain saturation since this morning Repeat chest x-ray showed worsening of pneumonia Denies any chest pain and/or palpitation, no fever and/or chills, no nausea and or vomiting 04/19/2020 The patient was seen and examined in medical telemetry and Covid unit He has been feeling much better today Denies any shortness of breath at rest and has been communicating well But still requiring high flow oxygen at 10 to 11 L/min Review of Systems Review of Systems: All systems reviewed and are unremarkable except as noted below Respiratory: + cough, + chest congestion, + dyspnea and + dyspnea on exertion Physical Exam Physical Exam: Lying in bed with minimal discomfort due to shortness of breath Constitutional: well developed, well nourished and + obese Eyes: PERRL, conjunctivae normal, anicteric sclerae ENMT: external ear and nose normal, oropharynx normal Neck: trachea midline, no thyromegaly Respiratory: + respiratory distress (Minimal at rest and with cough) Auscultation: + diminished lung sounds (Very diminished lung sounds bilaterally) Cardiovascular: Rate/Rhythm: regular rate and regular rhythm Heart Sounds: no murmur Extremities: no edema Gastrointestinal (Abdomen): Inspection/Auscultation: normal bowel sounds; abdomen not distended Percussion/Palpation: abdomen soft; abdomen nontender Musculoskeletal: No acute arthritis in any joint Neurologic: Alert, awake and oriented x3 Psychiatric: A+Ox3, euthymic affect Lymphatic: no cervical or axillary lymphadenopathy Results & Data Results & Data ([facility]) Vital Signs (Past 12 Hours) Vital Signs Temp Pulse Pulse Pulse Resp BP Pulse Ox 04/19/20 08:11 36.6 C 81 18 124/81 91 04/19/20 07:30 62 04/19/20 04:00 68 91 Laboratory Results Short CBC 04/19/20 Range/Units 05:37 WBC 5.37 (4.8-10.8) K/uL Hgb 15.5 (14.0-18.0) g/dL Hct 46.2 (42-52) % Plt Count 331 (130-400) K/uL BMP 04/19/20 05:37 Sodium 139 Potassium 3.8 Chloride 102 Carbon Dioxide 32 BUN 23 H Creatinine 1.13 Glucose 94 Calcium 8.9 Liver Function 04/19/20 Range/Units 05:37 Total Bilirubin 0.7 (0.2-1) mg/dl AST 48 H (15-37) U/L ALT 83 H (12-78) U/L Alkaline Phosphatase 79 (45-117) U/L Albumin 2.9 L (3.4-5.0) gm/dl Medications Administered Current Inpatient Medications Acetaminophen (Acetaminophen 325 Mg Tab) 325 mg PO Q6H PRN PRN Reason: Mild Pain Stop: 05/15/20 06:52 Benzonatate (Benzonatate 100 Mg Capsule) 100 mg PO BID PRN PRN Reason: Cough Stop: 05/15/20 16:03 Last Admin: 04/19/20 12:27 Dose: 100 mg Documented by: Enoxaparin Sodium (Enoxaparin Inj 40 Mg/0.4 Ml Syr) 40 mg SQ Q12 [facility] Stop: 05/18/20 21:14 Last Admin: 04/19/20 09:02 Dose: 40 mg Documented by: Guaifenesin (Guaifenesin 600 Mg Tabcr) 1,200 mg PO Q12 [facility] Stop: 05/15/20 06:52 Last Admin: 04/19/20 09:03 Dose: 1,200 mg Documented by: Guaifenesin/Codeine Phosphate (Guaifenesin/Codeine 200mg/20mg 10ml Udc) 10 ml PO Q6H PRN PRN Reason: Cough Stop: 05/15/20 15:54 Last Admin: 04/16/20 00:53 Dose: 10 ml Documented by: Guaifenesin/Dextromethorphan (Guaifenesin/Dextrom Syrup 200mg/20mg 10ml Udc) 10 ml PO Q8 [facility] Stop: 05/18/20 21:59 Last Admin: 04/19/20 12:27 Dose: 10 ml Documented by: Dexamethasone Sodium Phosphate (6 mg/ Syringe) 1.5 mls @ 1 mls/min IV QAM [facility] Stop: 04/25/20 09:02 Last Admin: 04/19/20 09:02 Dose: 1 mls/min Documented by: Remdesivir 100 mg/ Sodium (Chloride) 250 mls @ 250 mls/hr IV Q24H [facility]; Protocol Stop: 04/19/20 20:59 Last Infusion: 04/18/20 21:12 Dose: Infused Documented by: Azithromycin 500 mg/ Dextrose 255 mls @ 127.5 mls/hr IV Q24H [facility] Stop: 04/23/20 23:29 Last Infusion: 04/19/20 02:13 Dose: Infused Documented by: Ipratropium [place] (Ipratropium [place] Neb Soln 0.02% 2.5 Ml Vial) 0.5 mg INH Q4H PRN PRN Reason: Shortness Of Breath Or Wheezing Stop: 05/17/20 00:14 Last Admin: 04/17/20 00:36 Dose: 0.5 mg Documented by: Levalbuterol HCl (Levalbuterol 1.25mg/0.5ml Neb) 1.25 mg INH Q4H PRN PRN Reason: Shortness Of Breath Or Wheezing Stop: 05/17/20 00:14 Last Admin: 04/17/20 00:36 Dose: 1.25 mg Documented by: Sodium Chloride (Sodium Chloride 0.9% 10ml Flush) 30 ml IV Q24H [facility] Stop: 04/19/20 20:01 Last Admin: 04/18/20 21:12 Dose: 30 ml Documented by:
[2020-04-19] MEDS: REMDESIVIR 100 MG in SODIUM CHLORIDE 0.9% 230 ML IV SCH (20:20)
[2020-04-19] MEDS: SODIUM CHLORIDE 0.9% 10ML FLUSH IV SCH (22:07)
[2020-04-19] MEDS: AZITHROMYCIN 500 MG in DEXTROSE 5% 250 ML IV SCH (23:51)
[2020-04-20] MEDS: guaiFENesin/DEXTROM SYRUP 200MG/20MG 10ML UDC PO SCH ×2 (06:02→14:11)
[2020-04-20] MEDS: ENOXAPARIN INJ 40 MG/0.4 ML SYR SQ SCH (08:06)
[2020-04-20] MEDS: DEXAMETHASONE SOD PHOSPHATE 6 MG in SYRINGE 0 ML IV SCH (08:07)
[2020-04-20] MEDS: guaiFENesin 600 MG TABCR PO SCH (08:07)
[2020-04-20 08:28] LABS: Creatinine Clr Calc Pharmacy 109.8 ml/min; Est GFR (African American) 91.1; Est GFR (Non-African American) 78.6
--- NOTE | 2020-04-20 13:07 | Hospitalist Progress Note ---
Date of Service April 20, 2020 Assessment & Plan (1) Pneumonia due to 2019 novel coronavirus: The patient was started on dexamethasone And has been getting remdesivir,-we will check LFTs No indication for antibiotics at this point. Clinically worse today with worsening of the chest x-ray finding and requiring more than 10 L of nasal cannula oxygen to maintain saturation [employer] Board Carrier consulted as the patient may require ventilatory support Appreciate pulmonary input and recommendation He has been put on intravenous azithromycin Clinically much better today and hopefully will requiring less oxygen to maintain saturation (2) Hypoxia: Continue plan as above, continue oxygen supplementation for support. Advised ambulation within the room and use spirometer Requiring high flow oxygen to maintain saturation Try to put him on prone position without much improvement Advised to put him on prone position as long as he can tolerate and BiPAP at nighttime As above (3) Elevated LFTs: Likely related to fatty liver disease versus medications. The patient also recently had a couple alcoholic drinks, which may be playing a role. We will get repeat LFTs tomorrow Are improving (4) DVT prophylaxis: Lovenox Full code Disposition-to telemetry. Home when off oxygen and clinically improved, likely in the next few days Admission and Anticipated Discharge Date Admission Date: April 15, 2020 Subjective The patient was seen and examined in medical floor He was admitted with COVID-19 pneumonia and has been getting little better since admission Complains to have weakness and tiredness Minimal shortness of breath and cough with ambulation 04/17/2020 The patient was seen and examined in medical floor He required more oxygen last night but since this morning his saturation remains stable with up to 4 L of nasal cannula oxygen Denies any other symptoms and feels better 04/18/2020 Patient was seen and examined in medical telemetry unit He denies any symptoms but has been requiring more than 10 L of oxygen to maintain saturation since this morning Repeat chest x-ray showed worsening of pneumonia Denies any chest pain and/or palpitation, no fever and/or chills, no nausea and or vomiting 04/19/2020 The patient was seen and examined in medical telemetry and Covid unit He has been feeling much better today Denies any shortness of breath at rest and has been communicating well But still requiring high flow oxygen at 10 to 11 L/min 04/20/2020 The patient was seen and examined in Covid room He has been feeling much better today Has been conversing normally and moving around the room Review of Systems Review of Systems: All systems reviewed and are unremarkable except as noted below Respiratory: + cough, + chest congestion, + dyspnea and + dyspnea on exertion Neurologic: + generalized weakness Physical Exam Physical Exam: Lying in bed with minimal discomfort due to shortness of breath Constitutional: well developed, well nourished and + obese Eyes: PERRL, conjunctivae normal, anicteric sclerae ENMT: external ear and nose normal, oropharynx normal Neck: trachea midline, no thyromegaly Respiratory: + respiratory distress (Minimal at rest and with cough) Auscultation: + diminished lung sounds (Very diminished lung sounds bilaterally) Cardiovascular: Rate/Rhythm: regular rate and regular rhythm Heart Sounds: no murmur Extremities: no edema Gastrointestinal (Abdomen): Inspection/Auscultation: normal bowel sounds; abdomen not distended Percussion/Palpation: abdomen soft; abdomen nontender Musculoskeletal: No acute arthritis in any joint Psychiatric: A+Ox3, euthymic affect Lymphatic: no cervical or axillary lymphadenopathy Results & Data Results & Data ([facility]) Vital Signs (Past 12 Hours) Vital Signs Temp Pulse Pulse Resp BP BP Pulse Ox 04/20/20 12:01 36.8 C 84 18 117/75 91 04/20/20 08:05 97 04/20/20 07:53 36.6 C 81 18 106/72 93 04/20/20 07:09 59 L 04/20/20 02:56 36.7 C 77 19 112/73 91 Laboratory Results [facility] 04/20/20 07:43 Creatinine 1.15 Liver Function 04/20/20 Range/Units 07:43 AST 75 H (15-37) U/L ALT 112 H (12-78) U/L Medications Administered Current Inpatient Medications Acetaminophen (Acetaminophen 325 Mg Tab) 325 mg PO Q6H PRN PRN Reason: Mild Pain Stop: 05/15/20 06:52 Benzonatate (Benzonatate 100 Mg Capsule) 100 mg PO BID PRN PRN Reason: Cough Stop: 05/15/20 16:03 Last Admin: 04/19/20 12:27 Dose: 100 mg Documented by: Enoxaparin Sodium (Enoxaparin Inj 40 Mg/0.4 Ml Syr) 40 mg SQ Q12 [facility] Stop: 05/18/20 21:14 Last Admin: 04/20/20 08:06 Dose: 40 mg Documented by: Guaifenesin (Guaifenesin 600 Mg Tabcr) 1,200 mg PO Q12 [facility] Stop: 05/15/20 06:52 Last Admin: 04/20/20 08:07 Dose: 1,200 mg Documented by: Guaifenesin/Codeine Phosphate (Guaifenesin/Codeine 200mg/20mg 10ml Udc) 10 ml PO Q6H PRN PRN Reason: Cough Stop: 05/15/20 15:54 Last Admin: 04/16/20 00:53 Dose: 10 ml Documented by: Guaifenesin/Dextromethorphan (Guaifenesin/Dextrom Syrup 200mg/20mg 10ml Udc) 10 ml PO Q8 [facility] Stop: 05/18/20 21:59 Last Admin: 04/20/20 06:02 Dose: 10 ml Documented by: Dexamethasone Sodium Phosphate (6 mg/ Syringe) 1.5 mls @ 1 mls/min IV QAM [facility] Stop: 04/25/20 09:02 Last Admin: 04/20/20 08:07 Dose: 1 mls/min Documented by: Azithromycin 500 mg/ Dextrose 255 mls @ 127.5 mls/hr IV Q24H [facility] Stop: 04/23/20 23:29 Last Infusion: 04/20/20 01:12 Dose: Infused Documented by: Ipratropium [place] (Ipratropium [place] Neb Soln 0.02% 2.5 Ml Vial) 0.5 mg INH Q4H PRN PRN Reason: Shortness Of Breath Or Wheezing Stop: 05/17/20 00:14 Last Admin: 04/17/20 00:36 Dose: 0.5 mg Documented by: Levalbuterol HCl (Levalbuterol 1.25mg/0.5ml Neb) 1.25 mg INH Q4H PRN PRN Reason: Shortness Of Breath Or Wheezing Stop: 05/17/20 00:14 Last Admin: 04/17/20 00:36 Dose: 1.25 mg Documented by:
--- NOTE | 2020-04-20 14:38 | Pulmonology Progress Note ---
Date of Service April 20, 2020 Assessment & Plan (1) Acute hypoxemic respiratory failure: Check x-ray 04/18/2020 personally reviewed: Bilateral alveolar opacities appreciated mostly peripheral, increased cardiac silhouette, blunting of bilateral costophrenic and cardiophrenic angles. There is progressive infiltrates compared to chest x-ray done 04/15/2020 --Acute hypoxic respiratory failure Secondary to multilobar pneumonia secondary to COVID-19 COVID-19 PCR positive, 04/15/2020 Procalcitonin less than 0.05 CRP 2.48, AST 848, ALT 83, LDH 297, ferritin 1400 D-dimer less than 190 O2 supplementation to keep oxygen saturation 90-92% Recommend awake proning If there is any respiratory distress appreciated subjectively by the patient or objectively by the providers would recommend transition to high flow. Continue with remdesivir for total of 5 days Continue with dexamethasone for total of 5 days Atypical coverage for antibiotics for 5 days Lovenox 40 mg twice daily Guaifenesin DM [id number] Incentive spirometry --Morbid obesity History of snoring Recommend outpatient polysomnography BiPAP nightly if patient is able to tolerate --Plan: Recommend keeping the patient euvolemic to negative balance Patient is obese, he will benefit from BiPAP nightly. Would recommend going down on IPAP to 10 and continue with a EPAP to 6 to see if he is able to tolerate. Patient has remained stable and oxygen requirement is gradually going down. Pulmonary will follow peripherally. Please call with any questions. Please note the above document was generated using voice recognition software. It may contain grammatical, syntax or spelling errors.Any formal questions or concerns about the content, text or information contained within the body of thi s dictation should be directly addressed to the provider for clarification. (2) Pneumonia due to 2019 novel coronavirus: Admission and Anticipated Discharge Date Admission Date: April 15, 2020 Subjective Patient seen and examined at bedside. No acute distress. No adverse events overnight. Patient said he slept very well last night. He is on facemask at the time of examination saturating 94% on 10 L. I went down to 8 L when I entered the room. He was still saturating 92% after I was done with interrogating him. He is moving around in the room. Cough is decreased in intensity. He states that he is bringing up phlegm. Denies any chest pain. No headache, no dizziness. Review of Systems Review of Systems: All systems reviewed & are unremarkable except as noted in Subjective Physical Exam Physical Exam: Constitutional: No acute distress HEENT: EOMI, PERRLA Respiratory system: Decreased air entry bilaterally, no wheeze, rhonchi, positive crackles bilateral lower lobes CVS: S1-S2 positive, no murmurs or gallops Abdomen: Soft, nontender, nondistended, positive bowel sounds x4, obese Extremities: +2 pulses bilaterally radialis/ dorsalis pedis, no cyanosis, no edema Neuro: Awake alert oriented x3 Psych: Normal mood and affect G/U: No [place] Skin: no rashes, warm and dry Lymphatic: no cervical or axillary lymphadenopathy Results & Data Results & Data ([facility]) Vital Signs (Past 12 Hours) Vital Signs Temp Pulse Pulse Resp BP BP Pulse Ox 04/20/20 14:20 94 04/20/20 12:01 36.8 C 84 18 117/75 91 04/20/20 08:05 97 04/20/20 07:53 36.6 C 81 18 106/72 93 04/20/20 07:09 59 L 04/20/20 02:56 36.7 C 77 19 112/73 91 04/19/20 05:37 04/20/20 07:43 PG Care Time/CCT Total # of Minutes Spent Total Time Spent with Patient: Total time spent is greater than 50% in coordination of care (as documented) at patient's floor/unit and/or counseling patient: Coding Level of Care Code 49376 Subseq Hosp Care Lvl 3 Diagnoses Acute hypoxemic respiratory failure J96.01 Pneumonia due to 2019 novel coronavirus U07.1; J12.82
[2020-04-20] MEDS ORDERED: SODIUM CHLORIDE 0.65% NA SOLN 45 ML (OCEAN) ONE (18:49)
[2020-04-21] MEDS: guaiFENesin 600 MG TABCR PO SCH ×3 (00:16→21:37)
[2020-04-21] MEDS: guaiFENesin/DEXTROM SYRUP 200MG/20MG 10ML UDC PO SCH ×4 (00:16→21:37)
[2020-04-21] MEDS: ENOXAPARIN INJ 40 MG/0.4 ML SYR SQ SCH ×3 (00:17→21:36)
[2020-04-21] MEDS: AZITHROMYCIN 500 MG in DEXTROSE 5% 250 ML IV SCH (00:17)
[2020-04-21 07:51] LABS: Basophils # (auto) 0.01 K/uL (0-0.2); Basophils % (auto) 0.1 %; Eosinophils # (auto) 0.04 K/uL (0-0.5); Eosinophils % (auto) 0.6 %; Hematocrit (blood only) 46.7 % (42-52); Immature Granulocytes # (auto) 0.06 K/uL (0.00-0.02); Immature Granulocytes % (auto) 0.8 %; Lymphocytes # (auto) 1.86 K/uL (1.2-3.4); Lymphocytes % (auto) 26.1 %; Mean Corpuscular Hemoglobin 32.2 pg (25-34); Mean Corpuscular Hgb Conc 34.3 g/dL (32-36); Mean Platelet Volume 10.1 fL (7.4-10.4); Monocytes # (auto) 0.88 K/uL (0.11-0.59); Monocytes % (auto) 12.4 %; Neutrophils # (auto) 4.27 K/uL (1.4-6.5); Platelet Count 394 K/uL (130-400); RDW Coefficient of Variation 13.1 % (11.5-14.5); RDW Standard Deviation 44.7 fL (36.4-46.3); Red Blood Count 4.97 M/uL (4.7-6.1); White Blood Count 7.12 K/uL (4.8-10.8)
[2020-04-21 08:29] LABS: Albumin Level 2.9 gm/dl (3.4-5.0); BUN Creatinine Ratio 21.4 (10-20); Calcium 8.8 mg/dl (8.5-10.1); Creatinine Clr Calc Pharmacy 123.2 ml/min; Est GFR (African American) 105.3; Est GFR (Non-African American) 90.9; Magnesium 2.6 mg/dl (1.8-2.4); Potassium 3.5 mmol/L (3.5-5.1)
[2020-04-21 08:32] LABS: Albumin Globulin Ratio 0.7 (0.9-2); Bilirubin,Total 0.7 mg/dl (0.2-1); Phosphorus 3.4 mg/dl (2.5-4.9); Total Protein 6.9 gm/dl (6.4-8.2)
[2020-04-21] MEDS: DEXAMETHASONE SOD PHOSPHATE 6 MG in SYRINGE 0 ML IV SCH (09:03)
--- NOTE | 2020-04-21 14:35 | Hospitalist Progress Note ---
Date of Service April 21, 2020 Assessment & Plan (1) Pneumonia due to 2019 novel coronavirus: The patient was started on dexamethasone And has been getting remdesivir,-we will check LFTs No indication for antibiotics at this point. Clinically worse today with worsening of the chest x-ray finding and requiring more than 10 L of nasal cannula oxygen to maintain saturation Chief Science Officer consulted as the patient may require ventilatory support Appreciate pulmonary input and recommendation He has been put on intravenous azithromycin Much better since this morning and saturating reasonably well on room air Advised to move around inside the room and continue to use spirometer Likely home tomorrow and prior to discharge will await to do steps O2 saturation test (2) Hypoxia: Continue plan as above, continue oxygen supplementation for support. Advised ambulation within the room and use spirometer Requiring high flow oxygen to maintain saturation Try to put him on prone position without much improvement Advised to put him on prone position as long as he can tolerate and BiPAP at nighttime As above (3) Elevated LFTs: Likely related to fatty liver disease versus medications. The patient also recently had a couple alcoholic drinks, which may be playing a role. We will get repeat LFTs tomorrow Are improving Remdesivir course is done We will continue with dexamethasone and azithromycin to finish the course (4) DVT prophylaxis: Lovenox Full code Disposition-to telemetry. Home when off oxygen and clinically improved, likely in the next few days Likely discharge tomorrow if remains stable Admission and Anticipated Discharge Date Admission Date: April 15, 2020 Subjective The patient was seen and examined in medical floor He was admitted with COVID-19 pneumonia and has been getting little better since admission Complains to have weakness and tiredness Minimal shortness of breath and cough with ambulation 04/17/2020 The patient was seen and examined in medical floor He required more oxygen last night but since this morning his saturation remains stable with up to 4 L of nasal cannula oxygen Denies any other symptoms and feels better 04/18/2020 Patient was seen and examined in medical telemetry unit He denies any symptoms but has been requiring more than 10 L of oxygen to maintain saturation since this morning Repeat chest x-ray showed worsening of pneumonia Denies any chest pain and/or palpitation, no fever and/or chills, no nausea and or vomiting 04/19/2020 The patient was seen and examined in medical telemetry and Covid unit He has been feeling much better today Denies any shortness of breath at rest and has been communicating well But still requiring high flow oxygen at 10 to 11 L/min 04/20/2020 The patient was seen and examined in Covid room He has been feeling much better today Has been conversing normally and moving around the room 04/21/2020 The patient was seen and examined in Covid room in medical telemetry unit He has been feeling a lot better today Saturating well with room air and ambulating in the room without much difficulty Review of Systems Review of Systems: All systems reviewed and are unremarkable except as noted below Respiratory: + cough, + chest congestion, + dyspnea and + dyspnea on exertion Neurologic: + generalized weakness Physical Exam Physical Exam: Lying in bed comfortably without any shortness of breath at rest Constitutional: well developed, well nourished and + obese Eyes: PERRL, conjunctivae normal, anicteric sclerae ENMT: external ear and nose normal, oropharynx normal Neck: trachea midline, no thyromegaly Respiratory: + respiratory distress (Minimal at rest and with cough) Auscultation: + diminished lung sounds (Seems to be improving) Cardiovascular: Rate/Rhythm: regular rate and regular rhythm Heart Sounds: no murmur Extremities: no edema Gastrointestinal (Abdomen): Inspection/Auscultation: normal bowel sounds; abdomen not distended Percussion/Palpation: abdomen soft; abdomen nontender Musculoskeletal: No acute arthritis in any joint Psychiatric: A+Ox3, euthymic affect Lymphatic: no cervical or axillary lymphadenopathy Results & Data Results & Data ([facility]) Vital Signs (Past 12 Hours) Vital Signs Temp Pulse Pulse Resp BP BP Pulse Ox 04/21/20 12:15 36.8 C 77 20 121/81 89 L 04/21/20 07:27 76 04/21/20 06:38 36.7 C 80 16 119/76 91 04/21/20 04:05 36.9 C 99 H 17 112/70 91 Laboratory Results Short CBC 04/21/20 Range/Units 07:28 WBC 7.12 (4.8-10.8) K/uL Hgb 16.0 (14.0-18.0) g/dL Hct 46.7 (42-52) % Plt Count 394 (130-400) K/uL BMP 04/21/20 07:28 Sodium 141 Potassium 3.5 Chloride 106 Carbon Dioxide 27 BUN 22 H Creatinine 1.02 Glucose 96 Calcium 8.8 Liver Function 04/21/20 Range/Units 07:28 Total Bilirubin 0.7 (0.2-1) mg/dl AST 83 H (15-37) U/L ALT 131 H (12-78) U/L Alkaline Phosphatase 69 (45-117) U/L Albumin 2.9 L (3.4-5.0) gm/dl Medications Administered Current Inpatient Medications Acetaminophen (Acetaminophen 325 Mg Tab) 325 mg PO Q6H PRN PRN Reason: Mild Pain Stop: 05/15/20 06:52 Last Admin: 04/21/20 01:53 Dose: 325 mg Documented by: Benzonatate (Benzonatate 100 Mg Capsule) 100 mg PO BID PRN PRN Reason: Cough Stop: 05/15/20 16:03 Last Admin: 04/19/20 12:27 Dose: 100 mg Documented by: Enoxaparin Sodium (Enoxaparin Inj 40 Mg/0.4 Ml Syr) 40 mg SQ Q12 M[facility] Stop: 05/18/20 21:14 Last Admin: 04/21/20 09:04 Dose: 40 mg Documented by: Guaifenesin (Guaifenesin 600 Mg Tabcr) 1,200 mg PO Q12 M[facility]IA Stop: 05/15/20 06:52 Last Admin: 04/21/20 09:03 Dose: 1,200 mg Documented by: Guaifenesin/Codeine Phosphate (Guaifenesin/Codeine 200mg/20mg 10ml Udc) 10 ml PO Q6H PRN PRN Reason: Cough Stop: 05/15/20 15:54 Last Admin: 04/16/20 00:53 Dose: 10 ml Documented by: Guaifenesin/Dextromethorphan (Guaifenesin/Dextrom Syrup 200mg/20mg 10ml Udc) 10 ml PO Q8 MELANIA Stop: 05/18/20 21:59 Last Admin: 04/21/20 13:35 Dose: 10 ml Documented by: Dexamethasone Sodium Phosphate (6 mg/ Syringe) 1.5 mls @ 1 mls/min IV QAM MELANIA Stop: 04/25/20 09:02 Last Admin: 04/21/20 09:03 Dose: 1 mls/min Documented by: Azithromycin 500 mg/ Dextrose 255 mls @ 127.5 mls/hr IV Q24H M[facility]IA Stop: 04/23/20 23:29 Last Infusion: 04/21/20 01:49 Dose: Infused Documented by: Ipratropium [place] (Ipratropium [place] Neb Soln 0.02% 2.5 Ml Vial) 0.5 mg INH Q4H PRN PRN Reason: Shortness Of Breath Or Wheezing Stop: 05/17/20 00:14 Last Admin: 04/17/20 00:36 Dose: 0.5 mg Documented by: Levalbuterol HCl (Levalbuterol 1.25mg/0.5ml Neb) 1.25 mg INH Q4H PRN PRN Reason: Shortness Of Breath Or Wheezing Stop: 05/17/20 00:14 Last Admin: 04/17/20 00:36 Dose: 1.25 mg Documented by:
[2020-04-22] MEDS: AZITHROMYCIN 500 MG in DEXTROSE 5% 250 ML IV SCH (00:30)
[2020-04-22] MEDS: guaiFENesin/DEXTROM SYRUP 200MG/20MG 10ML UDC PO SCH (06:32)
[2020-04-22 06:35] LABS: Basophils # (auto) 0.01 K/uL (0-0.2); Basophils % (auto) 0.1 %; Eosinophils # (auto) 0.04 K/uL (0-0.5); Eosinophils % (auto) 0.5 %; Hematocrit (blood only) 46.1 % (42-52); Hemoglobin 15.6 g/dL (14.0-18.0); Immature Granulocytes # (auto) 0.12 K/uL (0.00-0.02); Immature Granulocytes % (auto) 1.6 %; Lymphocytes # (auto) 2.02 K/uL (1.2-3.4); Lymphocytes % (auto) 27.4 %; Mean Corpuscular Hgb Conc 33.8 g/dL (32-36); Mean Corpuscular Volume 94.7 fL (80-100); Mean Platelet Volume 10.1 fL (7.4-10.4); Monocytes # (auto) 0.78 K/uL (0.11-0.59); Monocytes % (auto) 10.6 %; Neutrophils # (auto) 4.39 K/uL (1.4-6.5); Neutrophils % (auto) 59.8 %; Platelet Count 444 K/uL (130-400); RDW Standard Deviation 45.3 fL (36.4-46.3); Red Blood Count 4.87 M/uL (4.7-6.1); White Blood Count 7.36 K/uL (4.8-10.8)
[2020-04-22 07:16] LABS: BUN Creatinine Ratio 19.6 (10-20); Calcium 8.7 mg/dl (8.5-10.1); Creatinine Clr Calc Pharmacy 112.3 ml/min; Est GFR (African American) 94.1; Est GFR (Non-African American) 81.2
[2020-04-22 07:17] LABS: C Reactive Protein 0.45 mg/dl (0-0.29)
--- NOTE | 2020-04-22 08:09 | XRay Report ---
XR chest 1V portable HISTORY: Shortness of breath. Follow-up pneumonia COMPARISON: Chest 04/18/2020. FINDINGS: No pneumothorax. No pleural effusions. The cardiac silhouette remains mildly enlarged. Patc hy bilateral airspace opacities have improved. No evidence for pulmonary edema. IMPRESSION: Interval improvement in the patchy bilateral airspace opacities consistent with a resolving pneumonia . ACT 112: Negative or not required by law. Electronically signed by: Klaus Fabian M.D. 04/22/2020 8:08 AM
[2020-04-22] MEDS: DEXAMETHASONE SOD PHOSPHATE 6 MG in SYRINGE 0 ML IV SCH (10:13)
[2020-04-22] MEDS: guaiFENesin 600 MG TABCR PO SCH (10:14)
[2020-04-22] MEDS: ENOXAPARIN INJ 40 MG/0.4 ML SYR SQ SCH (10:14)
--- NOTE | 2020-04-22 10:59 | Cardiology Consultation ---
Date of Consultation April 22, 2020 Assessment & Plan (1) Acute hypoxemic respiratory failure: (2) Pneumonia due to 2019 novel coronavirus: (3) Sinus pause: I personally reviewed manager organizational in the event was actually a blocked PAC. He has had no other arrhythmias nor any cardiac complaints. Given his clinical presentation I am actually surprised he has not had more ectopy. I do not believe this represents a primary cardiac pathophysiology and no further cardiac testing is necessary at this time. No cardiac follow-up necessary as an outpatient but recommend follow-up with PCP. Patient states he is in agreement with this plan. History of Present Illness Reason for Consultation: 3-second pause on monitor Requesting Physician: Dr. Noe Attending Physician: Corby Noe MD History of Present Illness Mr. Lyons is a very pleasant 39-year-old gentleman who presented to [facility] on 04/15/2020 with complaints of Covid-like symptoms after exposure from his who was also Covid positive. Appropriate treatment was initiated and he has improved clinically. Discharge was scheduled for today, however, at approximately 5 AM this morning monitor techs reported a 3-second pause but otherwise sinus rhythm. He is not had any cardiac complaints during admission and denies any previous cardiac history. Spoke with the patient by phone today, he states that he feels well. Breathing has significantly improved and he is anxious for discharge. Denies experiencing any palpitations during admission. Allergies Allergy/AdvReac Type Severity Reaction Status Date / Time No Known Allergies Allergy Unverified 04/15/20 00:01 Home Medications Medication Instructions Recorded Confirmed Type No Known Home Medications 04/15/20 04/15/20 History albuterol sulfate 2 inh INHALATION Q8H PRN #8.5 g 04/22/20 Rx dexamethasone 6 mg PO DAILY #3 tab 04/22/20 Rx guaifenesin [Mucinex] 1,200 mg PO Q12 5 Days #20 tab 04/22/20 Rx Patient History Medical History Kidney stones Social History Smoking Status: Never smoker Second Hand Exposure: No; Do You Dip or Chew Tobacco: No; Tobacco Cessation Education Requested by Patient: No Hx Alcohol Use: Yes Hx Substance Use: No Preferred Language: Polish Communication Ability: Effective 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 Beliefs That Will Affect Care: None marital status: Current Living Situation: Spouse Other Information That Helps Us Care for You: No Feels Safe at Home: Yes Safety Concerns: Feels Safe At This Time Assistive Devices: None Review of Systems Review of Systems: All systems reviewed & are unremarkable except as noted in HPI & below Results & Data ([facility]) Vital Signs (Past 12 Hours) Vital Signs Temp Pulse Pulse Resp BP BP Pulse Ox 04/22/20 07:49 85 04/22/20 06:36 36.7 C 79 16 117/73 97 04/22/20 01:20 99 04/22/20 01:15 73 04/21/20 23:30 36.7 C 73 16 144/82 H 93 Laboratory Results Laboratory Results - last 24 hr 04/22/20 04/22/20 06:07 06:07 WBC 7.36 RBC 4.87 Hgb 15.6 Hct 46.1 MCV 94.7 MCH 32.0 MCHC 33.8 RDW Std Deviation 45.3 RDW Coeff of Mac 13.0 Plt Count 444 H MPV 10.1 Immature Gran % (Auto) 1.6 Neut % (Auto) 59.8 Lymph % (Auto) 27.4 [place] % (Auto) 10.6 Eos % (Auto) 0.5 Baso % (Auto) 0.1 Neut # (Auto) 4.39 Lymph # (Auto) 2.02 [place] # (Auto) 0.78 H Eos # (Auto) 0.04 Baso # (Auto) 0.01 Immature Gran # (Auto) 0.12 H Sodium 139 Potassium 4.0 Chloride 105 Carbon Dioxide 30 Anion Gap 4.0 BUN 22 H Creatinine 1.12 Est Cr Clr Drug Dosing 112.3 Est GFR ( Amer) 94.1 Est GFR (Non-Af Amer) 81.2 BUN/Creatinine Ratio 19.6 Glucose 83 Calcium 8.7 C-Reactive Protein 0.45 H Medications Administered Current Inpatient Medications Acetaminophen (Acetaminophen 325 Mg Tab) 325 mg PO Q6H PRN PRN Reason: Mild Pain Stop: 05/15/20 06:52 Last Admin: 04/21/20 01:53 Dose: 325 mg Documented by: Benzonatate (Benzonatate 100 Mg Capsule) 100 mg PO BID PRN PRN Reason: Cough Stop: 05/15/20 16:03 Last Admin: 04/19/20 12:27 Dose: 100 mg Documented by: Enoxaparin Sodium (Enoxaparin Inj 40 Mg/0.4 Ml Syr) 40 mg SQ Q12 [facility]IA Stop: 05/18/20 21:14 Last Admin: 04/22/20 10:14 Dose: Not Given Documented by: Guaifenesin (Guaifenesin 600 Mg Tabcr) 1,200 mg PO Q12 MELANIA Stop: 05/15/20 06:52 Last Admin: 04/22/20 10:14 Dose: 1,200 mg Documented by: Guaifenesin/Codeine Phosphate (Guaifenesin/Codeine 200mg/20mg 10ml Udc) 10 ml PO Q6H PRN PRN Reason: Cough Stop: 05/15/20 15:54 Last Admin: 04/16/20 00:53 Dose: 10 ml Documented by: Guaifenesin/Dextromethorphan (Guaifenesin/Dextrom Syrup 200mg/20mg 10ml Udc) 10 ml PO Q8 [facility] Stop: 05/18/20 21:59 Last Admin: 04/22/20 06:32 Dose: 10 ml Documented by: Dexamethasone Sodium Phosphate (6 mg/ Syringe) 1.5 mls @ 1 mls/min IV QAM [facility] Stop: 04/25/20 09:02 Last Admin: 04/22/20 10:13 Dose: 1 mls/min Documented by: Azithromycin 500 mg/ Dextrose 255 mls @ 127.5 mls/hr IV Q24H [facility] Stop: 04/23/20 23:29 Last Infusion: 04/22/20 02:35 Dose: Infused Documented by: Ipratropium [place] (Ipratropium [place] Neb Soln 0.02% 2.5 Ml Vial) 0.5 mg INH Q4H PRN PRN Reason: Shortness Of Breath Or Wheezing Stop: 05/17/20 00:14 Last Admin: 04/17/20 00:36 Dose: 0.5 mg Documented by: Levalbuterol HCl (Levalbuterol 1.25mg/0.5ml Neb) 1.25 mg INH Q4H PRN PRN Reason: Shortness Of Breath Or Wheezing Stop: 05/17/20 00:14 Last Admin: 04/17/20 00:36 Dose: 1.25 mg Documented by:
--- NOTE | 2020-04-22 11:14 | Hospitalist Progress Note ---
Date of Service April 22, 2020 Assessment & Plan (1) Pneumonia due to 2019 novel coronavirus: The patient was started on dexamethasone And has been getting remdesivir,-we will check LFTs No indication for antibiotics at this point. Clinically worse today with worsening of the chest x-ray finding and requiring more than 10 L of nasal cannula oxygen to maintain saturation Fiber Optics Technician consulted as the patient may require ventilatory support Appreciate pulmonary input and recommendation He has been put on intravenous azithromycin Much better since this morning and saturating reasonably well on room air Advised to move around inside the room and continue to use spirometer Likely home tomorrow and prior to discharge will await to do steps O2 saturation test He has been feeling a lot better and does not require any more oxygen to maintain saturation Chest x-ray this morning showed much improvement of the pneumonia Will be discharged this afternoon 3.1-second pause on monitor Noted to have last night EKG remains in sinus rhythm without any pauses He was asymptomatic throughout Discussed with the tour sales representative-nothing significant (2) Hypoxia: Continue plan as above, continue oxygen supplementation for support. Advised ambulation within the room and use spirometer Requiring high flow oxygen to maintain saturation Try to put him on prone position without much improvement Advised to put him on prone position as long as he can tolerate and BiPAP at nighttime As above (3) Elevated LFTs: Likely related to fatty liver disease versus medications. The patient also recently had a couple alcoholic drinks, which may be playing a role. We will get repeat LFTs tomorrow Are improving Remdesivir course is done We will continue with dexamethasone and azithromycin to finish the course (4) DVT prophylaxis: Lovenox Full code Disposition-to telemetry. Home when off oxygen and clinically improved, likely in the next few days Discharge home this afternoon Admission and Anticipated Discharge Date Admission Date: April 15, 2020 Subjective The patient was seen and examined in medical floor He was admitted with COVID-19 pneumonia and has been getting little better since admission Complains to have weakness and tiredness Minimal shortness of breath and cough with ambulation 04/17/2020 The patient was seen and examined in medical floor He required more oxygen last night but since this morning his saturation remains stable with up to 4 L of nasal cannula oxygen Denies any other symptoms and feels better 04/18/2020 Patient was seen and examined in medical telemetry unit He denies any symptoms but has been requiring more than 10 L of oxygen to maintain saturation since this morning Repeat chest x-ray showed worsening of pneumonia Denies any chest pain and/or palpitation, no fever and/or chills, no nausea and or vomiting 04/19/2020 The patient was seen and examined in medical telemetry and Covid unit He has been feeling much better today Denies any shortness of breath at rest and has been communicating well But still requiring high flow oxygen at 10 to 11 L/min 04/20/2020 The patient was seen and examined in Covid room He has been feeling much better today Has been conversing normally and moving around the room 04/21/2020 The patient was seen and examined in Covid room in medical telemetry unit He has been feeling a lot better today Saturating well with room air and ambulating in the room without much difficulty 04/22/2020 The patient was seen and examined in Covid room in medical telemetry unit He was noted to have a 3.1-second pause on monitor last night without any symptoms He has been feeling a lot better and does not require any oxygen to maintain saturation He will get a 2 steps O2 saturation test before discharge this afternoon Review of Systems Review of Systems: All systems reviewed and are unremarkable except as noted below Respiratory: no cough, no chest congestion, no dyspnea and no dyspnea on exertion Neurologic: no generalized weakness Physical Exam Physical Exam: Lying in bed comfortably without any shortness of breath at rest Constitutional: well developed, well nourished and + obese Eyes: PERRL, conjunctivae normal, anicteric sclerae ENMT: external ear and nose normal, oropharynx normal Neck: trachea midline, no thyromegaly Respiratory: no respiratory distress (Minimal at rest and with cough) Auscultation: lungs clear to auscultation bilaterally; no diminished lung sounds (Seems to be improving) Cardiovascular: Rate/Rhythm: regular rate and regular rhythm Heart Sounds: no murmur Extremities: no edema Gastrointestinal (Abdomen): Inspection/Auscultation: normal bowel sounds; abdomen not distended Percussion/Palpation: abdomen soft; abdomen nontender Musculoskeletal: No acute arthritis in any joint Neurologic: Alert, awake and oriented x3. No focal sensory and motor deficit appreciated Psychiatric: A+Ox3, euthymic affect Lymphatic: no cervical or axillary lymphadenopathy Results & Data [facility] Vital Signs (Past 12 Hours) Vital Signs Temp Pulse Pulse Resp BP BP Pulse Ox 04/22/20 07:49 85 04/22/20 06:36 36.7 C 79 16 117/73 97 04/22/20 01:20 99 04/22/20 01:15 73 04/21/20 23:30 36.7 C 73 16 144/82 H 93 Laboratory Results Short CBC 04/22/20 Range/Units 06:07 WBC 7.36 (4.8-10.8) K/uL Hgb 15.6 (14.0-18.0) g/dL Hct 46.1 (42-52) % Plt Count 444 H (130-400) K/uL BMP 04/22/20 06:07 Sodium 139 Potassium 4.0 Chloride 105 Carbon Dioxide 30 BUN 22 H Creatinine 1.12 Glucose 83 Calcium 8.7 Medications Administered Current Inpatient Medications Acetaminophen (Acetaminophen 325 Mg Tab) 325 mg PO Q6H PRN PRN Reason: Mild Pain Stop: 05/15/20 06:52 Last Admin: 04/21/20 01:53 Dose: 325 mg Documented by: Benzonatate (Benzonatate 100 Mg Capsule) 100 mg PO BID PRN PRN Reason: Cough Stop: 05/15/20 16:03 Last Admin: 04/19/20 12:27 Dose: 100 mg Documented by: Enoxaparin Sodium (Enoxaparin Inj 40 Mg/0.4 Ml Syr) 40 mg SQ Q12 [facility] Stop: 05/18/20 21:14 Last Admin: 04/22/20 10:14 Dose: Not Given Documented by: Guaifenesin (Guaifenesin 600 Mg Tabcr) 1,200 mg PO Q12 MELANIA Stop: 05/15/20 06:52 Last Admin: 04/22/20 10:14 Dose: 1,200 mg Documented by: Guaifenesin/Codeine Phosphate (Guaifenesin/Codeine 200mg/20mg 10ml Udc) 10 ml PO Q6H PRN PRN Reason: Cough Stop: 05/15/20 15:54 Last Admin: 04/16/20 00:53 Dose: 10 ml Documented by: Guaifenesin/Dextromethorphan (Guaifenesin/Dextrom Syrup 200mg/20mg 10ml Udc) 10 ml PO Q8 MELANIA Stop: 05/18/20 21:59 Last Admin: 04/22/20 06:32 Dose: 10 ml Documented by: Dexamethasone Sodium Phosphate (6 mg/ Syringe) 1.5 mls @ 1 mls/min IV QAM [facility] Stop: 04/25/20 09:02 Last Admin: 04/22/20 10:13 Dose: 1 mls/min Documented by: Azithromycin 500 mg/ Dextrose 255 mls @ 127.5 mls/hr IV Q24H [facility] Stop: 04/23/20 23:29 Last Infusion: 04/22/20 02:35 Dose: Infused Documented by: Ipratropium [place] (Ipratropium [place] Neb Soln 0.02% 2.5 Ml Vial) 0.5 mg INH Q4H PRN PRN Reason: Shortness Of Breath Or Wheezing Stop: 05/17/20 00:14 Last Admin: 04/17/20 00:36 Dose: 0.5 mg Documented by: Levalbuterol HCl (Levalbuterol 1.25mg/0.5ml Neb) 1.25 mg INH Q4H PRN PRN Reason: Shortness Of Breath Or Wheezing Stop: 05/17/20 00:14 Last Admin: 04/17/20 00:36 Dose: 1.25 mg Documented by:
--- NOTE | 2020-04-22 15:17 | Electrocardiogram Report ---
Test Reason : Blood Pressure : / mmHG Vent. Rate : 083 BPM Atrial Rate : 083 BPM P-R Int : 138 ms QRS Dur : 090 ms QT Int : 404 ms P-R-T Axes : 040 -40 056 degrees QTc Int : 474 ms Poor data quality, interpretation may be adversely affected Normal sinus rhythm Poor R wave progression, consider anterior IN vs. lead placement vs. LVH Left anterior fascicular block Diffuse Nonspecific T wave abnormality Abnormal ECG When compared with ECG of 15-APR-2020 00:48, No significant change Confirmed by Pasha Rodriguez ([id number]) on 04/22/2020 3:16:49 PM Referred By: REFERRED SELF Confirmed By:Pasha Rodriguez
--- NOTE | 2020-04-22 16:17 | Discharge Summary ---
Date of Service April 22, 2020 Admission HPI Per Admitting Provider History obtained from patient and records. No significant medical history. Yesterday, patient developed dry cough and shortness of breath symptoms with fever, chills. No chest pain. Appetite not too good. 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 At the ER, O2 sats 80s at some point. Decadron given at the ER. 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 Admission Exam Per Admitting Provider Physical Exam: GENERAL: Comfortable, obese, pleasant, no respiratory distress SKIN: Normal color, warm HEENT: [place] palpebral conjunctivae, no ptosis, dry buccal mucosa, nasal cannula in place NECK : Supple, short neck, no tenderness CHEST : CTA, no tenderness HEART : RRR, no obvious murmurs ABDOMEN: Some distention, nontender EXTREMITIES : No LE swelling/tenderness, no other conspicuous deformities noted NEUROLOGIC : Coherent, no facial asymmetry, no other gross focality Principal Diagnosis Pneumonia due to COVID-19 infection, asymptomatic pause of 3.1 sec Discharge Exam Constitutional well developed, well nourished and + obese Eyes PERRL, conjunctivae normal, anicteric sclerae ENMT external ear and nose normal, oropharynx normal Neck trachea midline, no thyromegaly Respiratory no respiratory distress (Minimal at rest and with cough) Auscultation: lungs clear to auscultation bilaterally; no diminished lung sounds (Seems to be improving) Cardiovascular Rate/Rhythm: regular rate and regular rhythm Heart Sounds: no murmur Extremities: no edema Gastrointestinal (Abdomen) Inspection/Auscultation: normal bowel sounds; abdomen not distended Percussion/Palpation: abdomen soft; abdomen nontender Psychiatric A+Ox3, euthymic affect Lymphatic no cervical or axillary lymphadenopathy Discharge Data Allergies Allergy/AdvReac Type Severity Reaction Status Date / Time No Known Allergies Allergy Unverified 04/15/20 00:01 Consultations 04/15/20 01:43 ED Decision to Admit Stat 04/18/20 14:04 Consult Integration Developer Routine 04/22/20 08:00 Consult Cardiology Routine Hospital Course (1) Pneumonia due to 2019 novel coronavirus: The patient was started on dexamethasone And has been getting remdesivir,-we will check LFTs No indication for antibiotics at this point. Clinically worse today with worsening of the chest x-ray finding and requiring more than 10 L of nasal cannula oxygen to maintain saturation Integration Developer consulted as the patient may require ventilatory support Appreciate pulmonary input and recommendation He has been put on intravenous azithromycin Much better since this morning and saturating reasonably well on room air Advised to move around inside the room and continue to use spirometer Likely home tomorrow and prior to discharge will await to do steps O2 saturation test He has been feeling a lot better and does not require any more oxygen to maintain saturation Chest x-ray this morning showed much improvement of the pneumonia Will be discharged this afternoon 3.1-second pause on monitor Noted to have last night EKG remains in sinus rhythm without any pauses He was asymptomatic throughout 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 Advised ambulation within the room and use spirometer Requiring high flow oxygen to maintain saturation Try to put him on prone position without much improvement Advised to put him on prone position as long as he can tolerate and BiPAP at nighttime As above (3) Elevated LFTs: Likely related to fatty liver disease versus medications. The patient also recently had a couple alcoholic drinks, which may be playing a role. We will get repeat LFTs tomorrow Are improving Remdesivir course is done We will continue with dexamethasone and azithromycin to finish the course (4) DVT prophylaxis: Lovenox Full code Disposition-to telemetry. Home when off oxygen and clinically improved, likely in the next few days Discharge home this afternoon Total Time Total Time Spent Total Time Spent (In Minutes): 35 minutes Total Time Includes: Examination of the Patient, Discharge Planning, Medication Reconciliation and Communication With Other Providers Discharge Plan Discharge Items Patient Disposition: Home - Self-Care Reason For Visit: RESP FAILURE, COVID Discharge Diagnosis: Pneumonia due to COVID-19 infection, asymptomatic pause of 3.1 sec Condition on Discharge: Good Activity: Resume your previous activity Non-emergency contact: Primary Care Provider Call non-emergency contact if: you have any medication questions and your symptoms worsen Follow-up/Referrals: Pasha Heart MD [Outside Practitioners] - (Date & Time 04/25/2020 11:00 AM Provider Pasha Heart MD Department [facility] PLEASE NOTE THAT THIS IS A TELEPHONE APPOINTMENT. YOUR DOCTOR WILL CALL YOU AT THE APPOINTNENT TIME. IF YOU HAVE ANY QUESTIONS, PLEASE CALL ) Diet: Regular Addtl Attending Provider Instructions: Please take extreme preventive measures for the next 3 days to decrease spread of COVID-19 Follow the CDC guideline as mentioned below: Home Isolation COVID-19 Instructions The following information about Home Isolation is from the CDC Website: https://www.cdc.gov/coronavirus/2019-ncov/hcp/sguiuhfk-lhjenmw-lmuxha.html Stay home except to get medical care People who are mildly ill with COVID-19 are able to isolate at home during their illness. You should restrict activities outside your home, except for getting medical care. Do not go to work, school, or public areas. Avoid using public transportation, ride-sharing, or taxis. Separate yourself from other people and animals in your home People: As much as possible, you should stay in a specific room and away from other people in your home. Also, you should use a separate bathroom, if available. Animals: You should restrict contact with pets and other animals while you are sick with COVID-19, just like you would around other people. Although there have not been reports of pets or other animals becoming sick with COVID-19, it is still recommended that people sick with COVID-19 limit contact with animals until more information is known about the virus. When possible, have another member of your household care for your animals while you are sick. If you are sick with COVID-19, avoid contact with your pet, including petting, snuggling, being kissed or licked, and sharing food. If you must care for your pet or be around animals while you are sick, wash your hands before and after you interact with pets and wear a face mask. Call ahead before visiting your doctor If you have a medical appointment, call the healthcare provider and tell them that you have or may have COVID-19. This will help the healthcare providers office take steps to keep other people from getting infected or exposed. Wear a face mask You should wear a face mask when you are around other people (e.g., sharing a room or vehicle) or pets and before you enter a healthcare providers office. If you are not able to wear a face mask (for example, because it causes trouble breathing), then people who live with you should not stay in the same room with you, or they should wear a face mask if they enter your room. Cover your coughs and sneezes Cover your mouth and nose with a tissue when you cough or sneeze. Throw used tissues in a lined trash can. Immediately wash your hands with soap and water for at least 20 seconds or, if soap and water are not available, clean your hands with an alcohol-based hand sales department clerk that contains at least 60% alcohol. Clean your hands often Wash your hands often with soap and water for at least 20 seconds, especially after blowing your nose, coughing, or sneezing; going to the bathroom; and before eating or preparing food. If soap and water are not readily available, use an alcohol-based hand sales department clerk with at least 60% alcohol, covering all surfaces of your hands and rubbing them together until they feel dry. Soap and water are the best option if hands are visibly dirty. Avoid touching your eyes, nose, and mouth with unwashed hands. Avoid sharing personal household items You should not share dishes, drinking glasses, cups, eating utensils, towels, or bedding with other people or pets in your home. After using these items, they should be washed thoroughly with soap and water. Clean all high-touch surfaces everyday High touch surfaces include counters, tabletops, doorknobs, bathroom fixtures, toilets, phones, keyboards, tablets, and bedside tables. Also, clean any surfaces that may have blood, stool, or body fluids on them. Use a household cleaning spray or wipe, according to the label instructions. Labels contain instructions for safe and effective use of the cleaning product including precautions you should take when applying the product, such as wearing gloves and making sure you have good ventilation during use of the product. Monitor your symptoms Seek prompt medical attention if your illness is worsening (e.g., difficulty breathing).Beforeseeking care, call your healthcare provider and tell them that you have, or are being evaluated for, COVID-19. Put on a face mask before you enter the facility. These steps will help the healthcare providers office to keep other people in the office or waiting room from getting infected or exposed. Ask your healthcare provider to call the local or state health department. Persons who are placed under active monitoring or facilitated self- monitoring should follow instructions provided by their local health department or occupational health professionals, as appropriate. When working with your local health department check their available hours. If you have a medical emergency and need to call 911, notify the dispatch personnel that you have, or are being evaluated for COVID-19. If possible, put on a face mask before emergency medical services arrive. Discontinuing home isolation Patients with confirmed COVID-19 should remain under home isolation precautions until the risk of secondary transmission to others is thought to be low. The decision to discontinue home isolation precautions should be made on a case -by-case basis, in consultation with healthcare providers and formerly [facility] and local health departments. Pending Studies at Discharge: No Stand-Alone Forms: My [facility], Smoking Cessation Medications and DC Order Prescriptions: New guaifenesin [Mucinex] 600 mg Tablet Extended Release 12hr 1,200 mg PO Q12 5 Days Qty: 20 RF: 0 dexamethasone 6 mg tablet 6 mg PO DAILY Qty: 3 RF: 0 albuterol sulfate 90 mcg/actuation HFA aerosol inhaler 2 inh inhalation Q8H PRN (Reason: shortness of breath or wheezing) Qty: 8.5 RF: 0 No Action No Known Home Medications RF: 0 Discharge Orders: Discharge Order (Routine); Ordered 04/22/20 Ordered By: Corby Burrows/Other Patient Handouts: 5 Steps for Eating Healthier, A1C Admission Data Admit Date/Time: 04/15/20 05:09 Attending Provider: Corby Noe Admit Provider: José Miguel Tong Primary Care Provider: PCP,NO Other Providers: José Miguel Tong ; Mojgan Mckeon ; Mark Luna ; Maninder Mathews ; George Rod ; Isaac Mosley ; Juan Alberto Palm ; Scooter Jiménez ; Darrion Desuoza ; Antoinette Mckeon ; Paige Wilson ; Chang Mccracken Other Interventions: Discharge Summary Assessment (RN) Last Done: 04/22/20 11:37
== END 2020-04-22 14:40 | disposition home or self-care (01) | DRG 177 ==
LOC: ED 23:04 → EDINP 04-15 05:09 → SUATTDRO 04-15 05:09 → 2N 04-15 06:21